=== PATIENT | male | born 1940 | race Caucasian/White ===

== ENCOUNTER → 2017-04-15 | Day surgery (SDC) | payer MEDICARE, BC ==
[~2017-04-15] MED LIST: ACET325T11 PO; ASPI1TAB57 PO; ASPI81TA82 PO; CELE1CAP8 PO; CELE200C PO; CHOL50006 PO; D-50TAB PO; ENOX100P SQ; FOLI800T PO; FURO20TA PO; GLIP10TA6 PO; GLIP2.5T6 PO; KLOR20TA3 PO; LIDOCAINE HCL 1% PF 30 ML VIAL INFIL ONE; LORTA5 PO; MEPERIDINE HCL 25 MG/ML VIAL IV ONE; MEPERIDINE HCL 50 MG/ML VIAL IV ONE; METF500T PO; METH2.5 PO; METH2.5T PO; METO25 PO; METO25TA3 PO; MIDAZOLAM HCL 2 MG/2 ML VIAL IV ONE; POTA20PA PO; PROBCAP4 PO; PROPOFOL 200 MG/20 ML AMP IV ONE; SODIUM CHLORIDE 0.9% 10 ML VIAL ONE; WARF-21 PO; WARF7.5T4 PO; ZOLP10TA3 PO; [UNRECOGNIZED DRUG - CODE] PO; methylPREDNISolone ACETATE 80 MG/ML VIAL ONE
--- NOTE | 2017-04-17 14:19 | M6 ---
cc: Juvenal HUANG DATE: 04/15/2017. DATE OF : 11/22/1939 PROCEDURE PERFORMED: Fluoroscopically-guided L4-5 interlaminar epidural steroid injection. DESCRIPTION OF THE PROCEDURE IN DETAIL: History and physical was completed and signed. Consent was signed. Procedure site was marked. Medications were listed and reconciled. Pain score was recorded. Allergies were noted. Time out was taken. Fluoroscopy time was recorded where applicable. Sedation was administered or directed by Dr. Huang. The patient was given oxygen. The patient was monitored by a registered nurse. Total procedure time was greater than 15 minutes. IV was started, blood pressure cuff, pulse oximeter and EKG were applied. The patient was placed in the prone position on a Alex table and sedated with small amounts of propofol titrated to effect. Vital signs were monitored and remained stable throughout the procedure. The lumbar area was prepped with alcohol and 10% Betadine solution and draped with sterile drapes. Fluoroscopy was used to visualize the L4-5 interlaminar space. The skin was infiltrated with 1% Xylocaine using a 27-gauge needle. Then a 3-1/2-inch 18-gauge Tran needle was advanced using fluoroscopic guidance and the yygz-rz-hbencmuybz technique into the epidural space at L4-5 slightly to the left of the midline. There was negative aspiration for blood or any other type of fluid and the patient was given 10 mL of 0.5% Xylocaine and 80 mg of Depo-Medrol. Following this, the patient was taken to the recovery room with stable vital signs neurologically intact. MD REI Dominguez/VINCE /10:39 AM /2:04 PM
== END | disposition home or self-care (01) ==
LOC: PHSDC 08:56
PROVIDERS: ATTEND Pain Medicine Interventional Pain Medicine
DX: M54.5 Low back pain (principal)
CPT/HCPCS: 62323; 99152; J1040; J2175; J2250

== ENCOUNTER → 2017-07-01 | Day surgery (SDC) | payer MEDICARE, BC ==
[~2017-07-01] MED LIST changes: -ACET325T11 PO; -ASPI81TA82 PO; -CELE200C PO; -CHOL50006 PO; -ENOX100P SQ; -GLIP2.5T6 PO; +LIDOCAINE HCL 1% 30 ML VIAL INFIL ONE; -LIDOCAINE HCL 1% PF 30 ML VIAL INFIL ONE; -LORTA5 PO; -MEPERIDINE HCL 25 MG/ML VIAL IV ONE; -MEPERIDINE HCL 50 MG/ML VIAL IV ONE; -METH2.5 PO; -METO25 PO; -MIDAZOLAM HCL 2 MG/2 ML VIAL IV ONE; -POTA20PA PO; -PROBCAP4 PO; -PROPOFOL 200 MG/20 ML AMP IV ONE; +TRIAMCINOLONE ACETONIDE 40 MG/ML VIAL NERV BLOCK ONE; -WARF7.5T4 PO
--- NOTE | 2017-07-01 08:00 | M6 ---
cc: Juvenal Huang MD DATE: 07/01/2017 PROCEDURE PERFORMED: Fluoroscopically-guided L3-L4 interlaminar epidural steroid injection. DETAILS OF PROCEDURE: History and physical was completed and signed. Consent was signed. Procedure site was marked. Medications were listed and reconciled. Pain score was recorded. Allergies were noted. Time out was taken. Fluoroscopy time was recorded where applicable. Blood pressure cuff pulse oximeter and EKG were applied. The patient was placed in colon left lateral decubitus position. His back was prepped with alcohol and 10% Betadine solution and draped with sterile drapes. Fluoroscopy was used to visualize the L3-L4 interlaminar space. The skin was infiltrated with 1% Xylocaine, using a 27-gauge needle. Then, a 3.5-inch 18-gauge Tran needle was advanced, using fluoroscopic guidance and the loss of resistance technique, into the epidural space at L3-L4, slightly to the left of the midline. There was negative aspiration for blood and any other type of fluid and the patient was given 10 mL of 0.5% Xylocaine and 80 mg of Depo-Medrol. Following the procedure, the patient was taken to the recovery room with stable vital signs and neurologically intact. Juvenal Huang MD [facility]/BRAYDON , 07:51 AM , 07:59 AM
== END | disposition home or self-care (01) ==
LOC: PHSDC 06:22
PROVIDERS: ATTEND Pain Medicine Interventional Pain Medicine
DX: M54.5 Low back pain (principal)
CPT/HCPCS: 62323; J1040; J3301

== ENCOUNTER → 2017-08-20 | Day surgery (SDC) | payer MEDICARE, BC ==
[~2017-08-20] MED LIST changes: +IOHEXOL 180 MG/ML 20 ML VIAL (for RAD DIAG) EPIDURAL ONE; +MEPERIDINE HCL 50 MG/ML VIAL IV ONE; -SODIUM CHLORIDE 0.9% 10 ML VIAL ONE; -methylPREDNISolone ACETATE 80 MG/ML VIAL ONE
--- NOTE | 2017-08-20 08:11 | M6 ---
cc: Juvenal Huang MD DATE: 08/20/2017 PROCEDURE PERFORMED: Fluoroscopically guided L2-3 interlaminar epidural steroid injection. History and physical was completed and signed. Consent was signed. Procedure site was marked. Medications were listed and reconciled. Pain score was recorded. Allergies were noted. Time out was taken. Fluoroscopy time was recorded where applicable. Sedation was administered or directed by Dr. Huang. The patient was given oxygen. The patient was monitored by a registered nurse. Total procedure time was greater than 15 minutes. PROCEDURE NOTE: IV was started. Blood pressure cuff, pulse oximeter and EKG were applied. The patient was placed in the left lateral decubitus position. His back was prepped with alcohol and 10% Betadine solution. He was given 50 mg of Demerol IV. The area was draped with sterile drapes. The skin was infiltrated with 1% Xylocaine using a 27-gauge needle. Then, a 3-1/2 inch, 18-gauge Tran needle was advanced using fluoroscopic guidance and the loss of resistance technique into the epidural space slightly to the left of the midline. There was negative aspiration for blood or any other type of fluid and the patient was given 3 mL of 1% Xylocaine, 3 mL of Omnipaque and 60 mg of Kenalog. Following the procedure, the patient was taken to the recovery room with stable vital signs, neurologically intact. Juvenal Huang MD [facility]/MIRELLA , 07:54 AM , 08:08 AM
--- NOTE | 2017-08-20 08:18 | M6 ---
cc: Juvenal Huang MD DATE: 08/20/2017 PROCEDURE: Epidurogram. Images were saved to the patient's chart. INDICATION/PROCEDURE: Mr. Barr has left lower extremity pain across the thigh down to the knee, but not below the knee. He does have an old MRI done in 2014 showing a disk herniation at L2-L3 with some encroachment on the L2 nerve roots. We have done epidural steroid injections in the past, which gave the patient good relief for many months; however, recently on 07/01/2017 a lumbar epidural steroid injection did not give the patient much relief at all, so he may have a worsening condition or new herniated disk. We are repeating the epidural steroid injection today. We are performing an epidurogram to determine if there is good flow of medication to the L2 nerve roots or if there is some obstruction to flow of medication. In addition, I am giving the patient a prescription for a new MRI to determine if there is any new pathology that might be causing this increased pain, which is not responding to our treatment. A 3.5 inch, 18-gauge Tran needle was placed at the L3-L4 level under fluoroscopy. Omnipaque dye was injected and seen to spread only in a cephalad direction up to the T12-L1 level. None of the dye flowed caudally. IMPRESSION: Possible worsening spinal stenosis with obstruction of flow of the injected medication. PLAN: Await results of new MRI. Juvenal Huang MD [facility] , 07:58 AM , 08:16 AM
== END | disposition home or self-care (01) ==
LOC: PHSDC 06:16
PROVIDERS: ATTEND Pain Medicine Interventional Pain Medicine
DX: M79.662 Pain in left lower leg (principal)
CPT/HCPCS: 64483; J2175; J3301; Q9965

== ENCOUNTER 2017-11-10 06:42 | Inpatient (IN) ==
[~2017-11-10 06:42] MED LIST changes: -ASPI1TAB57 PO; -CELE1CAP8 PO; -D-50TAB PO; -FOLI800T PO; -FURO20TA PO; -GLIP10TA6 PO; +HYDROmorphone PF Inj 2 MG/ML Vial ONE; +Hypromellose 0.3% Opth Gel 10 GM Bottle ONE; -IOHEXOL 180 MG/ML 20 ML VIAL (for RAD DIAG) EPIDURAL ONE; -KLOR20TA3 PO; -LIDOCAINE HCL 1% 30 ML VIAL INFIL ONE; -MEPERIDINE HCL 50 MG/ML VIAL IV ONE; -METF500T PO; -METH2.5T PO; -METO25TA3 PO; +Propofol Inj 500 MG/50 ML Vial ONE; -TRIAMCINOLONE ACETONIDE 40 MG/ML VIAL NERV BLOCK ONE; -WARF-21 PO; -ZOLP10TA3 PO; -[UNRECOGNIZED DRUG - CODE] PO; +fentaNYL Citrate Inj 250 MCG/5 ML Ampul ONE
[2017-11-10] MEDS ORDERED: Metoprolol Tartrate 25 MG Tablet ONE (07:53)
[2017-11-10] MEDS ORDERED: ceFAZolin 2 GM Premix Inj 2 GM/50 ML PIGGYBACK IV.SIG ONE (08:05)
[2017-11-10] MEDS ORDERED: Gelatin Size 100 Topical Foam ONE (08:05)
[2017-11-10] MEDS ORDERED: Bupivacaine/Epinephrine 0.5% Inj 50 ML Vial ONE (08:05)
[2017-11-10] MEDS ORDERED: Thrombin Topical Soln 5,000 UNIT Vial TOPICAL ONE (08:05)
[2017-11-10] MEDS: Chlorhexidine Gluconate 2% 1 Pack (2 Cloths) TOPICAL ONE ×2 (08:15→08:38)
[2017-11-10] MEDS: Metoprolol Tartrate 25 MG Tablet PO SCH ×2 (08:25→22:31)
[2017-11-10] MEDS ORDERED: Lidocaine PF 1% Inj 5 ML Syringe INFILTRATN ONE (08:33)
[2017-11-10] MEDS ORDERED: Glycopyrrolate Inj 1 MG/5 ML Syringe IV.PUSH ONE (08:33)
[2017-11-10] MEDS ORDERED: Phenylephrine/NS 1000 MCG/10ML Syringe IV.PUSH ONE (08:33)
[2017-11-10] MEDS ORDERED: Sodium Chlor 0.9% Inj 500 ML IV.SIG ONE (08:33)
[2017-11-10 08:34] LABS: INR 1.1 Ratio; Prothrombin Time 11.3 sec (9.8-11.6)
[2017-11-10] MEDS ORDERED: Sodium Chlor 0.9% Inj 500 ML IV.SIG SCH (09:00)
[2017-11-10] MEDS ORDERED: Bisacodyl 10 MG Supp RECTAL PRN (09:57)
[2017-11-10] MEDS ORDERED: Acetaminophen 325 MG Tablet PO PRN (09:57)
[2017-11-10] MEDS ORDERED: Sodium Chlor 0.9% Inj 250 ML ONE (09:59)
[2017-11-10] MEDS ORDERED: ceFAZolin 2 GM/NS 100 ML IV IV.SIG SCH ×2 (10:00)
[2017-11-10] MEDS ORDERED: Acetaminophen 500 MG Tablet PO PRN (10:02)
[2017-11-10] MEDS ORDERED: Furosemide 20 MG Tablet PO PRN (10:02)
[2017-11-10] MEDS ORDERED: Bupivacaine Liposomal PF 1.3% Inj 20 ML Vial ONE (10:15)
[2017-11-10] MEDS ORDERED: METHOTREXATE SODIUM 5 MG PO SCH (10:15)
[2017-11-10] MEDS ORDERED: Heparin - SQ 10,000 UNITS/ML Vial ONE (10:18)
[2017-11-10] MEDS ORDERED: Propofol Inj 500 MG/50 ML Vial ONE (12:58)
[2017-11-10] MEDS ORDERED: Morphine Inj 4 MG/ML Vial ONE ×2 (12:59→16:22)
[2017-11-10 13:54] LABS: ABG Base Excess -0.8 mmol/L (-2-2); ABG PCO2 34 mmHg (38-42); ABG PO2 253 mmHG (61-120)
[2017-11-10] MEDS ORDERED: Naloxone Inj 0.4 MG/ML Vial IV.PUSH PRN (15:16)
[2017-11-10] MEDS ORDERED: HYDROmorphone PF Inj 2 MG/ML Vial IV.PUSH ONE (15:16)
--- NOTE | 2017-11-10 15:17 | P.OP ---
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 Microsurgical dissection Anesthesia: MADONNA Surgeon: Alber Lowe MD Fish Cleaner: Joaquin Garcia Pathology: none sent Operation and Findings: INDICATIONS FOR THE SURGICAL PROCEDURE Mr Brar is a 77 year-old male who presented with intractable mechanical back pain and antoni evidence of right L4 and L5 lower extremity radiculopathy. He had severe spondylosis with facet arthropathy and severe degenerative disk disease and instability with secondary spinal stenosis, where he had prior surgery. He failed maximum nonsurgical management including multiple modalities of conservative treatment as well as pain management interventions by an interventional pain specialist. A surgical decompression and arthrodhesis were indicated as a last resort. This was a difficult case due to the patient body habutus and severe degenerative condition that he had. The [id number] details of the procedure, indications, alternatives, risks and potential complications were fully discussed with the patient. The patient fully understood. All the questions were answered. No guarantees were given. The patient voiced requesting the procedure and provided informed consents. The patient was offered the alternative of delaying the procedure and continuing with nonsurgical management. DETAILS OF THE SURGICAL PROCEDURE Prior to the procedure, the surgical incision was marked in the preoperative surgical holding room, and the procedure, risks, and potential complications revisited with the patient. Placement of electrodes for intraoperative neurophysiological monitoring was completed. The patient was taken to the operative room, and following induction of general anesthesia, endotracheal intubation was performed. A Palacios catheter, bilateral PENELOPE hose and sequential compression devices were placed and kept throughout the procedure. The patient was positioned prone, over a Alex table over a Ankur frame. All pressure in the preoperative surgical holding room points were carefully padded with eggcrate and gel mattress. The eyes were tapped shut after ointment was applied by the anesthesiologist to prevent corneal abrasion. A Elham hugger was placed over the exposed lower body to maintain control of the core body temperature. The electrophysiological team placed the needles and electrodes in their proper location and baseline SSEP's and motor evoked potentials were registered prior and following the positioning. The entrance to each pedicles was marked using a C arm. The lumbar region was prepped and draped in the usual sterile fashion. The surgical procedure was performed in several steps as follow: SURGICAL APPROACH Once the patient was positioned, a localizing cross-table lateral x-ray was performed with a C-arm. Two paramedian small incisions were outlined on the skin approximately 3cm from the midline. The skin incisions were made with a # 10 blade. Small bleeders were controlled with the cautery. The dissection was then carried out into deper planes and through the thoracolumbar fascia with a Bovie. The intermuscular septum was identified and the mucles were blunted dissected along the septum. The facets and transverse process of L3, L4, L5 were exposed and the proper anatomical landmarks were identified. A microsurgical self-retaining retractor was placed on the incision, and a localizing lateralizing cross-table x-ray was performed with an instrument underneath a lamina of the lumbar spine. There was a bilateral pars defect with gross instability of the bony structures. INSTRUMENTAL FIXATION At this point in the procedure, placement of bilateral transpedicular screws was necessary for stabilization of the spine. Initially, the entry point for the screw was selected anatomically at the junction of the facet, with the transverse process, and the pars interarticularis at L5 and at the sacrum. This was started with a Giamshetti needle, followed by the use of an pierre wire, and then a tap was used to create the threads for the screws. Finally bilateral transpedicular screws were carefully placed bilaterally at L3, L4, L5 under fluoroscopic visualization. An appropriate purchase was achieved with all screws. The position of each screw was assessed anatomically with an AP, lateral , oblique Xrays. An intraoperative scan view of the spine was then performed using the iso-centric c-arm. Each screw was then assessed electrophysiologically with a nerve stimulator. SURGICAL DECOMPRESSION There was significant mass effect with compression of the neural structures. In order to relieve neural compression, it was necessary to perform a decompressive laminectomy, with decompression of the spinal canal and bilateral lateral recesses. Note that the scope of such decompression was significantly more extensive than the minimal exposure necessary to perform an interbody fusion, as there was extreme facet arthropathy with near complete collapse of the disk spaces and severe stenosis cause by the hyperthrophic joint facets. At this point of the procedure the operative microscope was draped in the usual sterile fashion and brought to the field. The rest of the surgical procedure was performed using microdissection technique with the exception of the closure. Under the operating microscope, a decompressive laminectomy was carried out at L3-4, and L4-5 as follow: The laminae, base of the spinous processes and facets were carefully drilled exposing the ligamentum flavum. The facets were abnormal with severe facet arthropathy, vacuum facets, and mass effect over the neural structures. A broad disk protusion was contributing to compression of the neural structures and bilateral exiting L4 and L5 nerve roots. A near complete facetectomy was necessary resulting in further mechanical instability. The ligamentum flavum appeared hypertrophic, resulting on mass effect on the dorsal surface of the neural structures. The superior free border of the ligamentum flavum was elevated with a ligament dissector and the ligamentum flavum was removed with a 3 and 4 mm Kerrison forceps. The ligament was very adherent to the dural sac and during the dissection, ans extreme care was taken during the dissection. The exiting nerve roots were identified, and a wide foraminotomy was performed with a Kerrison in their trajectory towards the neural foramenat both levels. Epidural veins located laterally to the dural sac were coagulated with the bipolar cautery, and then incised using microscissors. Gentle medial retraction of the dural sac allowed me to expose the disc space for the discectomy. Upon completion of the discectomy, an excellent decompression of the neural structures was achieved. INTERBODY ARTHRODHESIS In order to correct the narrowing of the disk space and maintain distraction of the space, and to achieve a solid interbody fusion, it was necessary the insertion of an interbody device into the disk space. Otherwise, the disk space would collapse, compromising the result of the surgical procedure. At this point of the procedure, the annulus fibrosus of the disk at L3-4 and L4- 5 were carefully coagulated with a bipolar cautery and incised using an 11 bladed knife. Then, a microdiscectomy was carried out in a standard fashion using a combination of straight and up-biting pituitary forceps. A reverse angle curette was applied underneath the posterior longitudinal ligament, and used to push the disk fragments into the disk space, so they can be safely removed with a pituitary forceps. Once the discectomy was completed, it was necessary to decorticate the endplates, in order to eliminate the cartilaginous endplate and to expose healthy bone appropriate to perform the interbody fusion. The endplates at L3-4 and L4-5 were then thoroughly decorticated using increasing size bone carlos eduardo and ring curets, eliminating the cartilaginous fragments from both, the superior and inferior endplates. A disk space distractor was applied to the pedicle screws and gentle distraction was applied. This maneuver was assisted by the use of a disk distractor. Once a thorough preparation of the disk space was achieved, the disk space was irrigated with antibiotic solution, and the interbody fusion was performed by carefully impacting expandable PEEK cages filled with autologous iliac crest bone graft. A solid position of the cage with good purchase was achieved at both levels. The position of the cages were assessed anatomically with a probe and radiologically with the C-arm. POSTEROLATERAL FUSION The posterolateral fusion is a critical component to the procedure, to prevent future fatigue and failure of the instrumental fixation. Initially, the transverse processes of the vertebral bodies, lateral surface of the facets and the lateral gutters of the spine were carefully cleaned, eliminating all soft tissue and muscle attachments. The area was then irrigated with a large amount of antibiotic solution. Subsequently, the transverse processes, lateral surface of the facets, and lateral gutters of the spine were thoroughly decorticated using the TPS drill with a 5mm cutting rolanda, exposing cancellous bone, in preparation for the posterolateral fusion. The incision was again irrigated with antibiotic solution. Then, the posterolateral fusion was then performed by carefully packing the lateral gutters of the spine at L3-4 and L4-5 with autologous bone combined with demineralized bone matrix. COMPLETION OF THE INSTRUMENTATION AND CLOSURE The rods were brought to the field, applied to all the screws, and the screw caps were sequentially applied. Compression was performed between the pedicle screws, and final tightening of the screws was completed using a torque wrench The incision was again thoroughly irrigated with several liters of antibiotic solution, and hemostasis secured with the bipolar cautery. A Valsalva Maneuver performed by the anesthesiologist failed to show any evidence of cerebrospinal fluid leak or bleeding. A 7 mm Alex-Auguste drain was left in the epidural space and externalized through a separate stab incision. The incision was then closed in planes. 0 Vicryl was used in an interrupted fashion to close the thoracolumbar fascia and the superficial fascia. The subcutaneous tissue was then approximated using 3-0 Vicryl in an interrupted fashion. Special care was taken to avoid space. The skin was then closed with 4-0 Vicryl in a running, subcuticular fashion. Dermabond was applied to the skin. Each plane of closure was irrigated with antibiotic solution. At the end of the procedure the sponge, needle and instrument counts were all correct. Estimated blood loss was 550 cc or less. he received autologous blood via the cell saver. No blood transfusion was given. The entire procedure was performed using continuous electrophysiological monitoring of the somatosensorial evoked potentials and EMG. The patient received prophylactic antibiotics. The patient was then extubated and transferred to the recovery room in stable condition.
[2017-11-10 15:24] LABS: ABG Base Excess -1.8 mmol/L (-2-2); ABG PCO2 47 mmHg (38-42); ABG PO2 254 mmHG (61-120)
[2017-11-10] MEDS ORDERED: fentaNYL Citrate Inj 100 MCG/2 ML Ampul ONE (16:22)
[2017-11-10] MEDS: HYDROmorphone PCA Inj 6 MG/30 ML PCA.VIAL PCA PRN (16:30)
--- NOTE | 2017-11-10 16:42 | XR ---
EXAM DATE: 11/10/2017 4:31 PM EDT AGE/SEX: 77 years / Male INDICATIONS: Lumbar fusion, L3-4 and 4-5. CLINICAL DATA: This is the patient's initial encounter. Patient reports that signs and symptoms have been present for 1 day and indicates a pain score of Nonresponsive. MEDICAL/SURGICAL HISTORY: . Arthritis. Diabetes. Spinal stenosis. A-fib. Hypertension. . COMPARISON: No prior exams available for comparison. FINDINGS: Transpedicular fixation from L3 to S1 in anatomic alignment. CONCLUSION: Anatomic alignment. Electronically signed by: Hermilo Dawson MD 11/10/2017 4:40 PM EDT
--- NOTE | 2017-11-10 18:48 | P.HPFP ---
History of Present Illness Service: primary care Primary Care Physician: Percy Antoine DO Chief Complaint: chronic worsening backpain - Diagnosis (1) Lumbar back pain (2) Spinal stenosis (3) Diabetes (4) Hypertension Inpatient Certification: I certify that the inpatient services were ordered in accordance with Medicare regulations governing the order. This includes certification that hospital inpatient services are reasonable and necessary and in the case of services not specified as inpatient-only under 42 CFR 419.22(n), that they are appropriately provided as inpatient services in accordance to with the 2-midnight benchmark under 43 CFR 412.3(e) Estimated Total Length of Stay (Days): 5 Plans for Post Hospital Care: Not yet determined (may require hospital rehab nielsen) Review of Systems Constitutional: Reports weakness Musculoskeletal: Reports abnormal walking, Reports back pain, Reports joint pain PMFSH - History History Provided By: Patient - Medical History Medical History: Medical History (Last Reviewed 11/10/17 @ 07:36 by Lainey Pascual) Arthritis Atrial fibrillation Back pain Diabetes Hypertension Joint pain Neck pain Psoriasis Sleep apnea Spinal stenosis Spondylolisthesis - Surgical History Surgical History: Surgical History (Last Reviewed 11/10/17 @ 07:24 by Lainey Pascual) History of cataract extraction with lens replacement History of hammer toe correction History of repair of left rotator cuff History of sinus surgery - Tobacco History Second Hand Smoke Exposure: No Smoking Status: Former smoker - Alcohol History How Often Do You Have a Drink Containing Alcohol: Never - Substance Use History Substance History: No History of Abuse - Travel History Recent Travel in the [place] Within the Last 8 Weeks: No Recent Travel Out of the Country Within the Last 8 Weeks: No Medications and Allergies Active Medications: Active Medications Acetaminophen (Tylenol) 650 mg PO Q4H PRN PRN Reason: TEMPERATURE > 101.5 F Acetaminophen/Codeine Phosphate (Tylenol W/Cod #3) 1 tab PO Q6H PRN PRN Reason: PAIN SCALE 1-10 Al Hydroxide/Mg Hydroxide (Milk Of Magnesia Liq) 30 ml PO Q12H PRN PRN Reason: Mild Constipation Bisacodyl (Dulcolax Supp) 10 mg RECTAL DAILY PRN PRN Reason: SEVERE CONSITIPATION Fluticasone Propionate (Flonase Nasal [place]) 1 spray EACH NARE DAILY [facility] Folic Acid (Folic Acid) 1 mg PO DAILY [facility] Furosemide (Lasix) 20 mg PO DAILY PRN PRN Reason: SEE LABEL COMMENTS Glipizide (Glucotrol) 10 mg PO BID [facility] Lactated Ringer's (Lr 1000 Ml Inj) 1,000 mls @ 30 mls/hr IV.SIG .Q24H [facility] Stop: 11/13/17 08:14 Last Admin: 11/10/17 16:30 Dose: 30 mls/hr Sodium Chloride (Ns Inj) 500 mls @ 30 mls/hr IV.SIG .Q10H [facility] Last Admin: 11/10/17 08:29 Dose: Not Given Cefazolin Sodium 2,000 mg/ (Sodium Chloride) 100 mls @ 200 mls/hr IV.SIG FOAM CUTTING SUPERVISOR [facility] Stop: 11/13/17 09:59 Cefazolin Sodium 2,000 mg/ (Sodium Chloride) 120 mls @ 240 mls/hr IV.SIG Q8H [facility] Stop: 11/11/17 12:29 Hydromorphone/Sodium Chloride (Dilaudid Cleaning Supervisor Inj) 6 mg in 30 mls @ 0 mls/hr [employer] UNSCH PRN PRN Reason: per SALES REPRESENTATIVE [employer]URANCE parameters Last Admin: 11/10/17 16:30 Dose: 0 mls/hr Lactulose (Lactulose Liq) 30 ml PO DAILY PRN PRN Reason: SEVERE CONSITIPATION Metformin HCl (Glucophage) 500 mg PO BID [facility] Methocarbamol (Robaxin) 750 mg PO HS [facility] Methotrexate (Rheumatrex) 10 mg PO Q7D [facility] Metoprolol Tartrate (Lopressor) 25 mg PO FOAM CUTTING SUPERVISOR [facility] Stop: 11/13/17 08:12 Last Admin: 11/10/17 08:25 Dose: Not Given Metoprolol Tartrate (Lopressor) 12.5 mg PO BID [facility] Miscellaneous Information (Misc Nursing Information) 1 each OTHER UNSCH PRN PRN Reason: SEE LABEL COMMENTS Stop: 11/11/17 17:04 Naloxone HCl (Narcan Inj) 0.4 mg IV.PUSH PRN PRN PRN Reason: SEE LABEL COMMENTS Non-Formulary Medication (Methotrexate Sodium [Methotrexate Sodium]) 5 mg PO QWEEK [facility] Pantoprazole Sodium (Protonix) 40 mg PO DAILY [facility] Potassium Chloride (K-Dur) 20 meq PO DAILY PRN PRN Reason: Electrolyte Replenishment Senna/Docusate Sodium (Lizbeth-Colace) 1 tab PO BID [facility] Sennosides (Senokot) 17.2 mg PO Q12H PRN PRN Reason: Moderate Constipation Vitamin D (Vitamin D3) 5,000 unit PO DAILY [facility] Zolpidem Tartrate (Ambien) 10 mg PO [facility] Allergies Allergy/AdvReac Type Severity Reaction Status Date / Time penicillin G Allergy Severe Rash Verified 11/10/17 07:24 Home Medications Medication Instructions Recorded Confirmed Type acetaminophen [Acetaminophen Extra 500 mg PO Q4H PRN 11/04/17 11/04/17 History Strength] acetaminophen-codeine 1 tab PO Q6H PRN 11/04/17 11/10/17 History aspirin [Aspirin Low Dose] 81 mg PO DAILY 11/04/17 11/04/17 History celecoxib [Celebrex] 200 mg PO BID 11/04/17 11/10/17 History cholecalciferol (vitamin D3) 5,000 unit PO DAILY 11/04/17 11/10/17 History [Vitamin D3] enoxaparin [Lovenox] 150 mg SUB-Q DAILY 11/04/17 11/10/17 History fluticasone [Flonase Allergy 1 spray INTRANASAL DAILY 11/04/17 11/04/17 History Relief] folic acid 0.8 mg PO DAILY 11/04/17 11/04/17 History furosemide 20 mg PO DAILY PRN 11/04/17 11/10/17 History glipizide 10 mg PO BID 11/04/17 11/10/17 History magnesium hydroxide [Milk of 15 ml PO DAILY PRN 11/04/17 11/04/17 History Magnesia] metformin 500 mg PO BID 11/04/17 11/10/17 History methocarbamol 750 mg PO HS 11/04/17 11/10/17 History methotrexate sodium 5 mg PO QWEEK 11/04/17 11/10/17 History methotrexate sodium 10 mg PO WEEKLY 11/04/17 11/10/17 History metoprolol tartrate 12.5 mg PO BID 11/04/17 11/10/17 History potassium chloride [Klor-Con M20] 20 meq PO DAILY PRN 11/04/17 11/10/17 History warfarin [Coumadin] 6 mg PO DAILY 11/04/17 11/04/17 History zolpidem 10 ophthalmic insert PO HS 11/04/17 11/10/17 History Exam Vital signs: Vital Signs 11/10/17 07:50 11/10/17 16:10 11/10/17 16:30 Temperature 97.6 F 98.6 F Pulse Rate 91 H 102 H 105 H Respiratory Rate 18 18 13 Blood Pressure 146/81 H 115/61 118/68 Pulse Oximetry 96 98 98 11/10/17 16:45 11/10/17 17:00 11/10/17 17:15 Temperature Pulse Rate 110 H 106 H 107 H Respiratory Rate 12 11 L 12 Blood Pressure 127/73 122/65 124/68 Pulse Oximetry 98 98 98 11/10/17 17:30 Temperature Pulse Rate 102 H Respiratory Rate 12 Blood Pressure 124/68 Pulse Oximetry 98 Intake & Output 11/09/17 11/10/17 11/10/17 18:59 06:59 18:59 Intake Total 3677 / 3677 Output Total 1440 / 1440 Balance 2237 / 2237 Weight 129.2 kg Intake: IV 1000 / 1000 LR 1000 mL Inj 1,000 ML @ 30 1000 / 1000 mls/hr IV.SIG .Q24H [facility] Rx#: [id number] Anesthesia Amount 2200 / 2200 Cell Saver Amount 477 / 477 Output: Estimated Blood Loss 600 / 600 Urine Amount (Catheter) 725 / 725 Indwelling Urethral Catheter 725 / 725 Wound Drainage 115 / 115 # 1 Lower Medial Back 115 / 115 Other: Weight On Admission 129.2 kg Results - Labs Abnormal lab results 11/10/17 11/10/17 11/10/17 Range/Units 13:35 15:07 17:04 ABG pH 7.44 H 7.32 L (7.380-7.420) ABG pCO2 34 L 47 H (38-42) mmHg ABG pO2 253 H 254 H (61-120) mmHG Hemoglobin 11.6 L (12.0-16.0) G/DL POC Glucose 185 H (68-110) mg/dl - Imaging Impressions Lumbar Spine X-Ray 11/10/17 00:00 CONCLUSION: Anatomic alignment. Caprini VTE Risk Assessment Caprini VTE Risk Assessment: Moderate/High Risk (score >= 2) Caprini Risk Assessment Model: Point Value = 1 Point Value = 2 Point Value = 3 Point Value = 5 Age 41-60 Minor surgery BMI > 25 kg/m2 Swollen legs Varicose veins or History of unexplained or recurrent spontaneous Oral contraceptives or hormone replacement Sepsis (< 1 month) Serious lung disease, including pneumonia (< 1 month) Abnormal pulmonary function Acute myocardial infarction Congestive heart failure (< 1 month) History of inflammatory bowel disease Medical patient at bed rest Age 61-74 Arthroscopic surgery Major open surgery (> 45 min) Laparoscopic surgery (> 45 min) Malignancy Confined to bed (> 72 hours) Immobilizing plaster cast Central venous access Age >= 75 History of VTE Family history of VTE Factor V Leiden Prothrombin [id number] Lupus anticoagulant Anticardiolipin antibodies Elevated serum homocysteine Heparin-induced thrombocytopenia Other congenital or acquired thrombophilia Stroke (< 1 month) Elective arthroplasty Hip, pelvis, or leg fracture Acute spinal cord injury (< 1 month) Prophylaxis Regimen: Total Risk Factor Score Risk Level Prophylaxis Regimen 0-1 Low Early ambulation 2 Moderate Order ONE of the following: *Sequential Compression Device (SCD) *Heparin 5000 units SQ BID 3-4 Higher Order ONE of the following medications: *Heparin 5000 units SQ TID *Enoxaparin/Lovenox 40 mg SQ daily (WT < 150 kg, CrCl > 30 mL/min) *Enoxaparin/Lovenox 30 mg SQ daily (WT < 150 kg, CrCl > 10-29 mL/min) *Enoxaparin/Lovenox 30 mg SQ BID (WT < 150 kg, CrCl > 30 mL/min) AND/OR *Sequential Compression Device (SCD) 5 or more Highest Order ONE of the following medications: *Heparin 5000 units SQ TID (Preferred with Epidurals) *Enoxaparin/Lovenox 40 mg SQ daily (WT < 150 kg, CrCl > 30 mL/min) *Enoxaparin/Lovenox 30 mg SQ daily (WT < 150 kg, CrCl > 10-29 mL/min) *Enoxaparin/Lovenox 30 mg SQ BID (WT < 150 kg, CrCl > 30 mL/min) AND *Sequential Compression Device (SCD) Assessment and Plan - Assessment (1) Lumbar back pain Code(s): M54.5 - Low back pain Status: Acute (2) Spinal stenosis Code(s): M48.00 - Spinal stenosis, site unspecified Status: Acute Plan: s/p lumbar surgery (3) Diabetes Code(s): E11.9 - Type 2 diabetes mellitus without complications Status: Acute Plan: accuchecks with coverage (4) Hypertension Code(s): I10 - Essential (primary) hypertension Status: Acute Plan: moniter bp and continue metoprolol - Assessment and Plan Discussed Condition With: nursing and patient /family H&P: Quality - VTE Deep Vein Thrombosis/Pulmonary Embolism Present on Admission: No (3) Diabetes Qualifiers: Diabetes mellitus type: type 2
[2017-11-10 20:30] LABS: Baso % (Auto) 0.1 % (0.0-2.0); Hematocrit 34.8 % (39.0-51.0); Hemoglobin 11.7 gm/dL (13.0-17.0); Lymph # (Auto) 0.7 th/mm3 (1.0-4.8); Lymph % (Auto) 5.6 % (9.0-44.0); Mean Corpuscular HGB Conc 33.5 % (32.0-36.0); Mean Corpuscular Hemoglobin 31.5 pg (27.0-34.0); Mean Platelet Volume 8.8 fL (7.0-11.0); Mono # (Auto) 0.6 th/mm3 (0.0-0.9); Mono % (Auto) 5.5 % (0.0-8.0); Neut # (Auto) 10.3 th/mm3 (1.8-7.7); Neut % (Auto) 88.8 % (16.0-70.0); Platelet Count 154 th/mm3 (150-450); Red Blood Count 3.71 mil/mm3 (4.50-5.90); Red Cell Distribution Width 15.9 % (11.6-17.2); White Blood Count 11.6 th/mm3 (4.0-11.0)
[2017-11-10 20:58] LABS: Anion Gap 8 meq/L (5-15); Blood Urea Nitrogen 14 mg/dL (7-18); Calcium 7.9 mg/dL (8.5-10.1); Carbon Dioxide 26.3 meq/L (21.0-32.0); Chloride 106 meq/L (98-107); Glomerular Filtration Rate Greater Than 89 mL/min (>89); Glucose,Random 176 mg/dL (74-106); Potassium 4.3 meq/L (3.5-5.1); Sodium 140 meq/L (136-145)
[2017-11-10] MEDS: Senna/Docusate Sodium 8.6/50 MG Tablet PO SCH (22:31)
[2017-11-10] MEDS: glipiZIDE 10 MG Tablet PO SCH (22:31)
[2017-11-10] MEDS: ceFAZolin Inj 2,000 MG in Sodium Chlor 0.9% Inj 100 ML IV.SIG SCH (22:32)
[2017-11-11] MEDS: Methocarbamol 500 MG Tablet PO SCH ×2 (00:57→20:23)
[2017-11-11] MEDS: ceFAZolin Inj 2,000 MG in Sodium Chlor 0.9% Inj 100 ML IV.SIG SCH ×2 (04:18→12:38)
[2017-11-11] MEDS: HYDROmorphone PCA Inj 6 MG/30 ML PCA.VIAL PCA PRN ×2 (04:19→21:58)
[2017-11-11 06:02] LABS: Anion Gap 7 meq/L (5-15); Carbon Dioxide 28.6 meq/L (21.0-32.0); Chloride 106 meq/L (98-107); Glomerular Filtration Rate Greater Than 89 mL/min (>89); Glucose,Random 145 mg/dL (74-106); Potassium 4.4 meq/L (3.5-5.1); Sodium 142 meq/L (136-145)
[2017-11-11 06:13] LABS: Blood Urea Nitrogen 13 mg/dL (7-18); Phosphorus 2.7 mg/dL (2.5-4.9)
[2017-11-11] MEDS: Senna/Docusate Sodium 8.6/50 MG Tablet PO SCH ×2 (08:38→20:22)
[2017-11-11] MEDS: glipiZIDE 10 MG Tablet PO SCH ×2 (08:38→20:22)
[2017-11-11] MEDS: Folic Acid 1 MG Tablet PO SCH (08:38)
[2017-11-11] MEDS: Metoprolol Tartrate 25 MG Tablet PO SCH ×4 (08:38→20:22)
--- NOTE | 2017-11-11 08:59 | P.PNFP ---
Subjective Interval history: Denies pain this am, with use of CHURCH HISTORY PROFESSOR No SOB. NO chest pain, No NV Spouse at bedside Results - Labs Result diagrams: 11/10/17 19:56 11/11/17 04:17 Abnormal lab results 11/10/17 11/10/17 11/10/17 Range/Units 13:35 15:07 17:04 WBC (4.0-11.0) th/mm3 RBC (4.50-5.90) mil/mm3 Hgb (13.0-17.0) gm/dL Hct (39.0-51.0) % Neut % (Auto) (16.0-70.0) % Lymph % (Auto) (9.0-44.0) % Neut # (Auto) (1.8-7.7) th/mm3 Lymph # (Auto) (1.0-4.8) th/mm3 ABG pH 7.44 H 7.32 L (7.380-7.420) ABG pCO2 34 L 47 H (38-42) mmHg ABG pO2 253 H 254 H (61-120) mmHG Hemoglobin 11.6 L (12.0-16.0) G/DL Creatinine (0.60-1.30) mg/dL POC Glucose 185 H (68-110) mg/dl Random Glucose (74-106) mg/dL Calcium (8.5-10.1) mg/dL 11/10/17 11/10/17 11/11/17 Range/Units 19:56 19:56 00:35 WBC 11.6 H (4.0-11.0) th/mm3 RBC 3.71 L (4.50-5.90) mil/mm3 Hgb 11.7 L (13.0-17.0) gm/dL Hct 34.8 L (39.0-51.0) % Neut % (Auto) 88.8 H (16.0-70.0) % Lymph % (Auto) 5.6 L (9.0-44.0) % Neut # (Auto) 10.3 H (1.8-7.7) th/mm3 Lymph # (Auto) 0.7 L (1.0-4.8) th/mm3 ABG pH (7.380-7.420) ABG pCO2 (38-42) mmHg ABG pO2 (61-120) mmHG Hemoglobin (12.0-16.0) G/DL Creatinine (0.60-1.30) mg/dL POC Glucose 155 H (68-110) mg/dl Random Glucose 176 H (74-106) mg/dL Calcium 7.9 L (8.5-10.1) mg/dL 11/11/17 11/11/17 Range/Units 04:17 06:21 WBC (4.0-11.0) th/mm3 RBC (4.50-5.90) mil/mm3 Hgb (13.0-17.0) gm/dL Hct (39.0-51.0) % Neut % (Auto) (16.0-70.0) % Lymph % (Auto) (9.0-44.0) % Neut # (Auto) (1.8-7.7) th/mm3 Lymph # (Auto) (1.0-4.8) th/mm3 ABG pH (7.380-7.420) ABG pCO2 (38-42) mmHg ABG pO2 (61-120) mmHG Hemoglobin (12.0-16.0) G/DL Creatinine 0.58 L (0.60-1.30) mg/dL POC Glucose 125 H (68-110) mg/dl Random Glucose 145 H (74-106) mg/dL Calcium 8.0 L (8.5-10.1) mg/dL Short CBC 11/10/17 Range/Units 19:56 WBC 11.6 H (4.0-11.0) th/mm3 Hgb 11.7 L (13.0-17.0) gm/dL Hct 34.8 L (39.0-51.0) % Plt Count 154 (150-450) th/mm3 BMP 11/10/17 11/11/17 19:56 04:17 Sodium 140 142 Potassium 4.3 4.4 Chloride 106 106 Carbon Dioxide 26.3 28.6 BUN 14 13 Creatinine 0.67 0.58 L Calcium 7.9 L 8.0 L - Imaging Impressions Lumbar Spine X-Ray 11/10/17 00:00 CONCLUSION: Anatomic alignment. Physical Exam Vital signs: Vital Signs 11/10/17 16:10 11/10/17 16:30 11/10/17 16:45 Temperature 98.6 F Pulse Rate 102 H 105 H 110 H Respiratory Rate 18 13 12 Blood Pressure 115/61 118/68 127/73 Pulse Oximetry 98 98 98 11/10/17 17:00 11/10/17 17:15 11/10/17 17:30 Temperature Pulse Rate 106 H 107 H 102 H Respiratory Rate 11 L 12 12 Blood Pressure 122/65 124/68 124/68 Pulse Oximetry 98 98 98 11/10/17 18:35 11/10/17 20:00 11/11/17 00:00 Temperature 98 F 97.7 F 98.1 F Pulse Rate 99 H 99 H 96 H Respiratory Rate 16 18 18 Blood Pressure 120/71 114/73 117/64 Pulse Oximetry 98 100 100 11/11/17 01:00 11/11/17 04:00 11/11/17 04:49 Temperature 97.3 F L Pulse Rate 91 H Respiratory Rate 17 18 17 Blood Pressure 114/64 Pulse Oximetry 100 11/11/17 21:00 Temperature Pulse Rate Respiratory Rate 17 Blood Pressure Pulse Oximetry Intake & Output 11/10/17 11/11/17 11/11/17 18:59 06:59 18:59 Intake Total 3677 / 3677 260 / 260 1000 / 1000 Output Total 1440 / 1440 1700 / 1700 Balance 2237 / 2237 -1440 / -1440 1000 / 1000 Weight 129.2 kg 129.2 kg Intake: IV 1000 / 1000 240 / 240 1000 / 1000 LR 1000 mL Inj 1,000 ML @ 30 1000 / 1000 1000 / 1000 mls/hr IV.SIG .Q24H [facility] Rx#: [id number] Ancef Inj 2,000 MG In NS Inj 240 / 240 100 ML @ 240 mls/hr IV.SIG Q8H [facility] Rx#:[id number] Oral 20 / 20 Anesthesia Amount 2200 / 2200 Cell Saver Amount 477 / 477 Output: Urine 1700 / 1700 Estimated Blood Loss 600 / 600 Urine Amount (Catheter) 725 / 725 Indwelling Urethral Catheter 725 / 725 Wound Drainage 115 / 115 # 1 Lower Medial Back 115 / 115 Other: Weight On Admission 129.2 kg - Constitutional no acute distress - Routine HEENT Exam Eye: Present: PERRL ENT: Present: mucous membranes moist - Routine Neck Exam Present: supple - Routine Respiratory Exam Present: CTA bilaterally - Routine Cardiovascular Exam Present: S1, S2 - Routine Abdominal Exam Present: soft, normoactive bowel sounds - Routine Extremities Exam Present: pulses intact - Routine Skin Exam Present: dry, warm - Routine Psychiatric Exam Present: normal affect, cooperative - Urinary Catheter Management Indwelling Urethral Catheter Cath placed during this visit: yes Reason for continuing: Other continuation reason Insertion date: 11/10/17 Insertion time: 09:00 Assessment and Plan - Assessment (1) Lumbar back pain Code(s): M54.5 - Low back pain Status: Acute (2) Spinal stenosis Code(s): M48.00 - Spinal stenosis, site unspecified Status: Acute Plan: s/p lumbar surgery (3) Diabetes Code(s): E11.9 - Type 2 diabetes mellitus without complications Status: Acute Plan: accuchecks with coverage (4) Hypertension Code(s): I10 - Essential (primary) hypertension Status: Acute Plan: moniter bp and continue metoprolol - Assessment and Plan 11/11/17- Seen this am, uneventful night reported. Pain controlled with Coat Check Attendant, Norm drain in place, SP L3-L4, L4-5 laminectomy. Denies any nausea, tolerating diet. PT to eval (3) Diabetes Qualifiers: Diabetes mellitus type: type 2
--- NOTE | 2017-11-11 10:44 | P.PNNS ---
Subjective Interval history: Pt awake and alert. Complains of incisional pain controlled with Diludid BLISTER PACKING MACHINE TENDER. No radiculopathy or paresthesias in LEs. Physical Exam Vital signs: Vital Signs 11/10/17 16:10 11/10/17 16:30 11/10/17 16:45 Temperature 98.6 F Pulse Rate 102 H 105 H 110 H Respiratory Rate 18 13 12 Blood Pressure 115/61 118/68 127/73 Pulse Oximetry 98 98 98 11/10/17 17:00 11/10/17 17:15 11/10/17 17:30 Temperature Pulse Rate 106 H 107 H 102 H Respiratory Rate 11 L 12 12 Blood Pressure 122/65 124/68 124/68 Pulse Oximetry 98 98 98 11/10/17 18:35 11/10/17 20:00 11/11/17 00:00 Temperature 98 F 97.7 F 98.1 F Pulse Rate 99 H 99 H 96 H Respiratory Rate 16 18 18 Blood Pressure 120/71 114/73 117/64 Pulse Oximetry 98 100 100 11/11/17 01:00 11/11/17 04:00 11/11/17 04:49 Temperature 97.3 F L Pulse Rate 91 H Respiratory Rate 17 18 17 Blood Pressure 114/64 Pulse Oximetry 100 11/11/17 08:00 11/11/17 21:00 Temperature 97.4 F L Pulse Rate 90 Respiratory Rate 18 17 Blood Pressure 116/62 Pulse Oximetry 99 Intake & Output 11/10/17 11/11/17 11/11/17 18:59 06:59 18:59 Intake Total 3677 / 3677 260 / 260 1000 / 1000 Output Total 1440 / 1440 1700 / 1700 Balance 2237 / 2237 -1440 / -1440 1000 / 1000 Weight 129.2 kg 129.2 kg Intake: IV 1000 / 1000 240 / 240 1000 / 1000 LR 1000 mL Inj 1,000 ML @ 30 1000 / 1000 1000 / 1000 mls/hr IV.SIG .Q24H [facility] Rx#: [id number] Ancef Inj 2,000 MG In NS Inj 240 / 240 100 ML @ 240 mls/hr IV.SIG Q8H [facility] Rx#:[id number] Oral 20 / 20 Anesthesia Amount 2200 / 2200 Cell Saver Amount 477 / 477 Output: Urine 1700 / 1700 Estimated Blood Loss 600 / 600 Urine Amount (Catheter) 725 / 725 Indwelling Urethral Catheter 725 / 725 Wound Drainage 115 / 115 # 1 Lower Medial Back 115 / 115 Other: Weight On Admission 129.2 kg - Constitutional no acute distress - Routine HEENT Exam Head: Present: normocephalic, atraumatic Eye: Present: PERRL. Absent: scleral injection ENT: Present: oropharynx clear - Routine Neck Exam Present: trachea midline - Routine Respiratory Exam Present: CTA bilaterally. Absent: respiratory distress, rhonchi, wheezes - Routine Cardiovascular Exam Present: RRR, S1, S2. Absent: murmur - Routine Abdominal Exam Present: soft, normoactive bowel sounds. Absent: distended - Routine Skin Exam Absent: cyanosis, erythema Comments: KINZA drain in place with bloody output. - Routine Neurological Exam Present: alert, oriented X3, motor deficit (Right EHL 4-/5 left EHL 4/5, otherwise 5/5 in LEs.), moving all extremities, normal speech. Absent: altered mental status - Routine Psychiatric Exam Present: normal affect, cooperative. Absent: anxious, agitated - Urinary Catheter Management Indwelling Urethral Catheter Cath placed during this visit: yes Reason for continuing: Other continuation reason Insertion date: 11/10/17 Insertion time: 09:00 Assessment and Plan - Assessment (1) Lumbar back pain Code(s): M54.5 - Low back pain Status: Acute (2) Spinal stenosis Code(s): M48.00 - Spinal stenosis, site unspecified Status: Acute (3) Diabetes Code(s): E11.9 - Type 2 diabetes mellitus without complications Status: Acute Qualifiers: Diabetes mellitus type: type 2 (4) Hypertension Code(s): I10 - Essential (primary) hypertension Status: Acute - Plan A: 77 y/o M s/p L3/L4 and L4/L5 TLIF with cage and pedicle screw fixation. P: Pain controlled with Dilaudid BLISTER PACKING MACHINE TENDER continue. Pt requesting to get oob this morning to have bm will have [employer] bring LSO brace. Continue with KINZA drain Continue with current care.
[2017-11-11] MEDS: Enoxaparin Inj 40 MG/0.4 ML Syringe SQ SCH (21:59)
[2017-11-12 06:01] LABS: Hematocrit 33.1 % (39.0-51.0); Hemoglobin 10.9 gm/dL (13.0-17.0); Mean Corpuscular HGB Conc 32.9 % (32.0-36.0); Mean Corpuscular Volume 94.3 fL (80.0-100.0); Mean Platelet Volume 9.1 fL (7.0-11.0); Platelet Count 152 th/mm3 (150-450); Red Blood Count 3.51 mil/mm3 (4.50-5.90); Red Cell Distribution Width 15.9 % (11.6-17.2); White Blood Count 12.2 th/mm3 (4.0-11.0)
[2017-11-12 06:23] LABS: Anion Gap 8 meq/L (5-15); Blood Urea Nitrogen 15 mg/dL (7-18); Calcium 7.9 mg/dL (8.5-10.1); Carbon Dioxide 29.1 meq/L (21.0-32.0); Chloride 103 meq/L (98-107); Glomerular Filtration Rate Greater Than 89 mL/min (>89); Glucose,Random 114 mg/dL (74-106); Potassium 3.9 meq/L (3.5-5.1); Sodium 140 meq/L (136-145)
[2017-11-12] MEDS: glipiZIDE 10 MG Tablet PO SCH ×2 (09:33→20:49)
[2017-11-12] MEDS: Senna/Docusate Sodium 8.6/50 MG Tablet PO SCH ×2 (09:33→20:49)
[2017-11-12] MEDS: Folic Acid 1 MG Tablet PO SCH (09:33)
[2017-11-12] MEDS: Metoprolol Tartrate 25 MG Tablet PO SCH ×2 (09:36→20:48)
--- NOTE | 2017-11-12 10:00 | P.PNFP ---
Subjective Interval history: Slept well Pain controlled w/ Finishing Frame Runner Denies CP, Sob, Spouse at Bedside Results - Labs Result diagrams: 11/12/17 04:21 11/12/17 04:21 Abnormal lab results 11/11/17 11/11/17 11/11/17 Range/Units 12:40 17:49 23:40 WBC (4.0-11.0) th/mm3 RBC (4.50-5.90) mil/mm3 Hgb (13.0-17.0) gm/dL Hct (39.0-51.0) % Creatinine (0.60-1.30) mg/dL POC Glucose 141 H 162 H 142 H (68-110) mg/dl Random Glucose (74-106) mg/dL Calcium (8.5-10.1) mg/dL 11/12/17 11/12/17 Range/Units 04:21 04:21 WBC 12.2 H (4.0-11.0) th/mm3 RBC 3.51 L (4.50-5.90) mil/mm3 Hgb 10.9 L (13.0-17.0) gm/dL Hct 33.1 L (39.0-51.0) % Creatinine 0.54 L (0.60-1.30) mg/dL POC Glucose (68-110) mg/dl Random Glucose 114 H (74-106) mg/dL Calcium 7.9 L (8.5-10.1) mg/dL Short CBC 11/12/17 Range/Units 04:21 WBC 12.2 H (4.0-11.0) th/mm3 Hgb 10.9 L (13.0-17.0) gm/dL Hct 33.1 L (39.0-51.0) % Plt Count 152 (150-450) th/mm3 BMP 11/12/17 04:21 Sodium 140 Potassium 3.9 Chloride 103 Carbon Dioxide 29.1 BUN 15 Creatinine 0.54 L Calcium 7.9 L - Imaging Lumbar Spine X-Ray 11/10/17 00:00 CONCLUSION: Anatomic alignment. Physical Exam Vital signs: Vital Signs 11/11/17 12:00 11/11/17 16:00 11/11/17 20:00 Temperature 98.5 F 97.7 F 98.0 F Pulse Rate 87 101 H 93 H Respiratory Rate 18 18 19 Blood Pressure 93/56 L 122/60 140/74 Pulse Oximetry 99 100 100 11/12/17 00:00 11/12/17 04:00 11/12/17 08:00 Temperature 97.6 F 97.7 F 97.9 F Pulse Rate 107 H 105 H 98 H Respiratory Rate 18 18 18 Blood Pressure 106/65 113/65 98/55 L Pulse Oximetry 96 96 94 L Intake & Output 11/11/17 11/12/17 11/12/17 18:59 06:59 18:59 Intake Total 1770 / 1770 1000 / 1000 Output Total 1030 / 1030 1305 / 1305 Balance 740 / 740 -1305 / -1305 1000 / 1000 Weight 129 kg Intake: IV 1120 / 1120 1000 / 1000 LR 1000 mL Inj 1,000 ML @ 30 1000 / 1000 1000 / 1000 mls/hr IV.SIG .Q24H [facility] Rx#: [id number] Ancef Inj 2,000 MG In NS Inj 120 / 120 100 ML @ 240 mls/hr IV.SIG Q8H [facility] Rx#:[id number] Oral 650 / 650 Output: Urine 950 / 950 750 / 750 Urine Amount (Catheter) 450 / 450 Indwelling Urethral Catheter 450 / 450 Wound Drainage 80 / 80 105 / 105 # 1 Lower Medial Back 80 / 80 105 / 105 - Constitutional no acute distress - Routine HEENT Exam Eye: Present: PERRL ENT: Present: mucous membranes moist - Routine Neck Exam Present: supple - Routine Respiratory Exam Present: diminished air movement - Routine Cardiovascular Exam Present: S1, S2 - Routine Abdominal Exam Present: soft, normoactive bowel sounds - Routine Extremities Exam Present: edema - Routine Skin Exam Present: dry, warm - Routine Neurological Exam Present: alert, oriented X3 - Routine Psychiatric Exam Present: cooperative - Urinary Catheter Management Indwelling Urethral Catheter Cath placed during this visit: yes Reason for continuing: Other continuation reason Insertion date: 11/10/17 Insertion time: 09:00 Assessment and Plan - Assessment (1) Lumbar back pain Code(s): M54.5 - Low back pain Status: Acute (2) Spinal stenosis Code(s): M48.00 - Spinal stenosis, site unspecified Status: Acute Plan: s/p lumbar surgery (3) Diabetes Code(s): E11.9 - Type 2 diabetes mellitus without complications Status: Acute Plan: accuchecks with coverage (4) Hypertension Code(s): I10 - Essential (primary) hypertension Status: Acute Plan: monitor bp and continue metoprolol - Assessment and Plan 11/11/17- Seen this am, uneventful night reported. Pain controlled with Finishing Frame Runner, Norm drain in place, SP L3-L4, L4-5 laminectomy. Denies any nausea, tolerating diet. PT to eval 11/12/17 Pain controlled Vss afebrile. Spouse concerned about restarting warfarin r/t cva. Will defer to NS when appropriate to restart. Referral made to [place] for acute rehab (3) Diabetes Qualifiers: Diabetes mellitus type: type 2
--- NOTE | 2017-11-12 10:47 | P.PNNS ---
Subjective Interval history: Pt awake and alert. Sitting up in chair. States incisional pain controlled. No radiculopathy in LEs. Some paresthesias in right leg no particular distribution but mild. Physical Exam Vital signs: Vital Signs 11/11/17 12:00 11/11/17 16:00 11/11/17 20:00 Temperature 98.5 F 97.7 F 98.0 F Pulse Rate 87 101 H 93 H Respiratory Rate 18 18 19 Blood Pressure 93/56 L 122/60 140/74 Pulse Oximetry 99 100 100 11/12/17 00:00 11/12/17 04:00 11/12/17 08:00 Temperature 97.6 F 97.7 F 97.9 F Pulse Rate 107 H 105 H 98 H Respiratory Rate 18 18 Blood Pressure 106/65 113/65 98/55 L Pulse Oximetry 96 96 94 L Intake & Output 11/11/17 11/12/17 11/12/17 18:59 06:59 18:59 Intake Total 1770 / 1770 1000 / 1000 Output Total 1030 / 1030 1305 / 1305 Balance 740 / 740 -1305 / -1305 1000 / 1000 Weight 129 kg Intake: IV 1120 / 1120 1000 / 1000 LR 1000 mL Inj 1,000 ML @ 30 1000 / 1000 1000 / 1000 mls/hr IV.SIG .Q24H [facility] Rx#: [id number] Ancef Inj 2,000 MG In NS Inj 120 / 120 100 ML @ 240 mls/hr IV.SIG Q8H [facility] Rx#:[id number] Oral 650 / 650 Output: Urine 950 / 950 750 / 750 Urine Amount (Catheter) 450 / 450 Indwelling Urethral Catheter 450 / 450 Wound Drainage 80 / 80 105 / 105 # 1 Lower Medial Back 80 / 80 105 / 105 - Constitutional no acute distress - Routine HEENT Exam Head: Present: normocephalic, atraumatic Eye: Present: PERRL - Routine Neck Exam Present: trachea midline - Routine Respiratory Exam Present: CTA bilaterally. Absent: respiratory distress, rhonchi, wheezes - Routine Cardiovascular Exam Present: RRR, S1, S2. Absent: murmur - Routine Abdominal Exam Present: soft, normoactive bowel sounds. Absent: tenderness - Routine Skin Exam Absent: cyanosis, erythema Comments: KINZA drain in place still draining a good amount of bloody drainage. - Routine Neurological Exam Present: alert, oriented X3, motor deficit (Right EHL weakness 4/5, otherwise 5/ 5 strength in LEs.), moving all extremities. Absent: sensory deficit, altered mental status - Routine Psychiatric Exam Present: cooperative. Absent: anxious, agitated - Urinary Catheter Management Indwelling Urethral Catheter Cath placed during this visit: yes Reason for continuing: Other continuation reason Insertion date: 11/10/17 Insertion time: 09:00 Assessment and Plan - Assessment (1) Lumbar back pain Code(s): M54.5 - Low back pain Status: Acute (2) Spinal stenosis Code(s): M48.00 - Spinal stenosis, site unspecified Status: Acute (3) Diabetes Code(s): E11.9 - Type 2 diabetes mellitus without complications Status: Acute Qualifiers: Diabetes mellitus type: type 2 (4) Hypertension Code(s): I10 - Essential (primary) hypertension Status: Acute - Plan A: 77 y/o M s/p L3/L4 and L4/L5 TLIF with cage and pedicle screw fixation. P: Discontinue Dilaudid [employer] Continue with KINZA drain Continue with current care. Continue with PT
[2017-11-12] MEDS: Acetaminophen/Codeine 300/30 MG Tablet PO PRN ×2 (14:20→20:47)
[2017-11-12] MEDS: Methocarbamol 500 MG Tablet PO SCH (21:08)
[2017-11-12] MEDS: Enoxaparin Inj 40 MG/0.4 ML Syringe SQ SCH (21:09)
[2017-11-13] MEDS: Acetaminophen/Codeine 300/30 MG Tablet PO PRN ×3 (06:34→19:19)
[2017-11-13] MEDS: Folic Acid 1 MG Tablet PO SCH (09:00)
[2017-11-13] MEDS: Senna/Docusate Sodium 8.6/50 MG Tablet PO SCH ×2 (09:00→21:04)
[2017-11-13] MEDS: Metoprolol Tartrate 25 MG Tablet PO SCH ×2 (09:00→21:04)
[2017-11-13] MEDS: glipiZIDE 10 MG Tablet PO SCH ×2 (09:00→21:03)
--- NOTE | 2017-11-13 15:53 | P.PNFP ---
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 Physical Exam Vital signs: Vital Signs 11/12/17 20:00 11/13/17 00:00 11/13/17 04:00 Temperature 98.9 F 98.3 F 98.3 F Pulse Rate 114 H 92 H 99 H Respiratory Rate 19 18 18 Blood Pressure 124/58 L 112/64 125/58 L Pulse Oximetry 97 96 98 11/13/17 08:00 11/13/17 12:00 Temperature 98.1 F 98.4 F Pulse Rate 99 H 94 H Respiratory Rate 20 18 Blood Pressure 129/63 113/64 Pulse Oximetry 97 98 Intake & Output 11/12/17 11/13/17 11/13/17 18:59 06:59 18:59 Intake Total 1600 / 1600 Output Total 1150 / 1150 1200 / 1200 80 / 80 Balance 450 / 450 -1200 / -1200 -80 / -80 Weight 128.6 kg Intake: IV 1000 / 1000 LR 1000 mL Inj 1,000 ML @ 30 1000 / 1000 mls/hr IV.SIG .Q24H [facility] Rx#: [id number] Oral 600 / 600 Output: Urine 800 / 800 Urine Amount (Catheter) 350 / 350 1000 / 1000 Indwelling Urethral Catheter 350 / 350 1000 / 1000 Wound Drainage 200 / 200 80 / 80 # 1 Lower Medial Back 200 / 200 80 / 80 - Constitutional no acute distress - Routine HEENT Exam Head: Present: normocephalic Eye: Present: PERRL ENT: Present: mucous membranes moist - Routine Neck Exam Present: supple - Routine Respiratory Exam Present: CTA bilaterally - Routine Cardiovascular Exam Present: S1, S2 - Routine Abdominal Exam Present: soft, normoactive bowel sounds - Routine Extremities Exam Present: pulses intact - Routine Skin Exam Present: dry, warm - Routine Neurological Exam Present: alert, oriented X3 - Routine Psychiatric Exam Present: cooperative - Urinary Catheter Management Indwelling Urethral Catheter Cath placed during this visit: yes Reason for continuing: Acute urinary retention Insertion date: 11/10/17 Insertion time: 09:00 Assessment and Plan - Assessment (1) Lumbar back pain Code(s): M54.5 - Low back pain Status: Acute (2) Spinal stenosis Code(s): M48.00 - Spinal stenosis, site unspecified Status: Acute Plan: s/p lumbar surgery (3) Diabetes Code(s): E11.9 - Type 2 diabetes mellitus without complications Status: Acute Plan: accuchecks with coverage (4) Hypertension Code(s): I10 - Essential (primary) hypertension Status: Acute Plan: monitor bp and continue metoprolol - Assessment and Plan 11/11/17- Seen this am, uneventful night reported. Pain controlled with Driver/Guide, Kinza drain in place, SP L3-L4, L4-5 laminectomy. Denies any nausea, tolerating diet. PT to eval 11/12/17 Pain controlled Vss afebrile. Spouse concerned about restarting warfarin r/t cva. Will defer to NS when appropriate to restart. Referral made to [facility] for acute rehab 11/13/17- complains of incision discomfort, denies radiculopathy. Increased drainage around KINZA site, Coumadin to be held tonight,possibly restart tomorrow. Tolerating diet, Pt/OT participations. (3) Diabetes Qualifiers: Diabetes mellitus type: type 2
--- NOTE | 2017-11-13 17:17 | P.PNNS ---
Subjective Interval history: Pt awake and alert. Complains of incisional back pain. Pt states he was up in a chair for over 3 hours. No radiculopathy or paresthesias in LEs. KINZA drain continues to drain a lot. He is on Lovenox. Pt states he has not had a bm no abdominal pain but starting to feel constipated. Physical Exam Vital signs: Vital Signs 11/12/17 20:00 11/13/17 00:00 11/13/17 04:00 Temperature 98.9 F 98.3 F 98.3 F Pulse Rate 114 H 92 H 99 H Respiratory Rate 19 18 18 Blood Pressure 124/58 L 112/64 125/58 L Pulse Oximetry 97 96 98 11/13/17 08:00 11/13/17 12:00 11/13/17 16:00 Temperature 98.1 F 98.4 F 98.1 F Pulse Rate 99 H 94 H 96 H Respiratory Rate 20 18 18 Blood Pressure 129/63 113/64 129/76 Pulse Oximetry 97 98 99 Intake & Output 11/12/17 11/13/17 11/13/17 18:59 06:59 18:59 Intake Total 1600 / 1600 Output Total 1150 / 1150 1200 / 1200 80 / 80 Balance 450 / 450 -1200 / -1200 -80 / -80 Weight 128.6 kg Intake: IV 1000 / 1000 LR 1000 mL Inj 1,000 ML @ 30 1000 / 1000 mls/hr IV.SIG .Q24H [facility] Rx#: [id number] Oral 600 / 600 Output: Urine 800 / 800 Urine Amount (Catheter) 350 / 350 1000 / 1000 Indwelling Urethral Catheter 350 / 350 1000 / 1000 Wound Drainage 200 / 200 80 / 80 # 1 Lower Medial Back 200 / 200 80 / 80 - Constitutional no acute distress, obese, cooperative - Routine HEENT Exam Head: Present: normocephalic, atraumatic Eye: Present: PERRL ENT: Present: oropharynx clear - Routine Respiratory Exam Present: CTA bilaterally. Absent: respiratory distress, rhonchi, wheezes - Routine Cardiovascular Exam Present: RRR, S1, S2. Absent: murmur - Routine Abdominal Exam Present: soft, normoactive bowel sounds. Absent: tenderness, firm - Routine Skin Exam Absent: cyanosis, erythema - Routine Neurological Exam Present: alert, oriented X3, moving all extremities, normal speech. Absent: sensory deficit, motor deficit - Routine Psychiatric Exam Present: normal affect, cooperative. Absent: anxious, agitated - Urinary Catheter Management Indwelling Urethral Catheter Cath placed during this visit: yes Reason for continuing: Acute urinary retention Insertion date: 11/10/17 Insertion time: 09:00 Assessment and Plan - Assessment (1) Lumbar back pain Code(s): M54.5 - Low back pain Status: Acute (2) Spinal stenosis Code(s): M48.00 - Spinal stenosis, site unspecified Status: Acute (3) Diabetes Code(s): E11.9 - Type 2 diabetes mellitus without complications Status: Acute Qualifiers: Diabetes mellitus type: type 2 (4) Hypertension Code(s): I10 - Essential (primary) hypertension Status: Acute - Plan A: 77 y/o M s/p L3/L4 and L4/L5 TLIF with cage and pedicle screw fixation. P: Continue with KINZA drain. Discussed with Dr. Lowe. Continue drain for another day. Pt is on Lovenox. Continue with current care. Continue with PT Pt has gotten laxatives. We will give suppository.
[2017-11-13] MEDS: Enoxaparin Inj 40 MG/0.4 ML Syringe SQ SCH (21:05)
[2017-11-13] MEDS: Methocarbamol 500 MG Tablet PO SCH (21:06)
[2017-11-14] MEDS: Acetaminophen/Codeine 300/30 MG Tablet PO PRN ×4 (02:56→22:19)
[2017-11-14 05:36] LABS: Hematocrit 31.2 % (39.0-51.0); Hemoglobin 10.5 gm/dL (13.0-17.0); Mean Corpuscular HGB Conc 33.7 % (32.0-36.0); Mean Corpuscular Hemoglobin 31.2 pg (27.0-34.0); Mean Corpuscular Volume 92.7 fL (80.0-100.0); Platelet Count 165 th/mm3 (150-450); Red Blood Count 3.37 mil/mm3 (4.50-5.90); Red Cell Distribution Width 15.4 % (11.6-17.2); White Blood Count 9.6 th/mm3 (4.0-11.0)
[2017-11-14 05:57] LABS: INR 1.1 Ratio; Prothrombin Time 11.1 sec (9.8-11.6)
[2017-11-14 06:18] LABS: Anion Gap 10 meq/L (5-15); Blood Urea Nitrogen 13 mg/dL (7-18); Calcium 8.1 mg/dL (8.5-10.1); Carbon Dioxide 28.4 meq/L (21.0-32.0); Chloride 104 meq/L (98-107); Glomerular Filtration Rate Greater Than 89 mL/min (>89); Glucose,Random 51 mg/dL (74-106); Potassium 3.3 meq/L (3.5-5.1); Sodium 142 meq/L (136-145)
[2017-11-14] MEDS: Senna/Docusate Sodium 8.6/50 MG Tablet PO SCH ×2 (10:01→20:23)
[2017-11-14] MEDS: Metoprolol Tartrate 25 MG Tablet PO SCH ×2 (10:01→20:22)
[2017-11-14] MEDS: Folic Acid 1 MG Tablet PO SCH (10:01)
[2017-11-14] MEDS: glipiZIDE 10 MG Tablet PO SCH (10:02)
--- NOTE | 2017-11-14 10:47 | P.PNFP ---
Subjective Interval history: He tells me he is receiving laxatives for constipation. He is hopeful for D/C to rehab early next week pending NS clearance. Results - Labs Result diagrams: 11/14/17 04:02 11/14/17 04:02 Abnormal lab results 11/14/17 11/14/17 11/14/17 Range/Units 04:02 04:02 08:13 RBC 3.37 L (4.50-5.90) mil/mm3 Hgb 10.5 L (13.0-17.0) gm/dL Hct 31.2 L (39.0-51.0) % Potassium 3.3 L (3.5-5.1) meq/L Creatinine 0.53 L (0.60-1.30) mg/dL POC Glucose 66 L (68-110) mg/dl Random Glucose 51 L (74-106) mg/dL Calcium 8.1 L (8.5-10.1) mg/dL Short CBC 11/14/17 Range/Units 04:02 WBC 9.6 (4.0-11.0) th/mm3 Hgb 10.5 L (13.0-17.0) gm/dL Hct 31.2 L (39.0-51.0) % Plt Count 165 (150-450) th/mm3 BMP 11/14/17 04:02 Sodium 142 Potassium 3.3 L Chloride 104 Carbon Dioxide 28.4 BUN 13 Creatinine 0.53 L Calcium 8.1 L Physical Exam Vital signs: Vital Signs 11/13/17 12:00 11/13/17 16:00 11/13/17 20:00 Temperature 98.4 F 98.1 F 97.6 F Pulse Rate 94 H 96 H 109 H Respiratory Rate 18 18 18 Blood Pressure 113/64 129/76 139/78 Pulse Oximetry 98 99 98 11/14/17 00:00 11/14/17 04:00 11/14/17 08:00 Temperature 98.1 F 98.1 F 98.2 F Pulse Rate 91 H 95 H 94 H Respiratory Rate 18 18 16 Blood Pressure 132/72 128/69 126/68 Pulse Oximetry 97 97 94 L Intake & Output 11/13/17 11/14/17 11/14/17 18:59 06:59 18:59 Intake Total 1200 / 1200 0 / 0 Output Total 1230 / 1230 2500 / 2500 Balance -30 / -30 -2500 / -2500 0 / 0 Intake: IV 0 / 0 Oral 1200 / 1200 Output: Urine 1250 / 1250 Urine Amount (Catheter) 1150 / 1150 1250 / 1250 Indwelling Urethral Catheter 1150 / 1150 1250 / 1250 Wound Drainage 80 / 80 # 1 Lower Medial Back 80 / 80 Other: # Bowel Movements 0 1 - Constitutional no acute distress - Routine HEENT Exam Head: Present: normocephalic, atraumatic Eye: Present: PERRL, normal accommodation ENT: Present: mucous membranes moist - Routine Neck Exam Present: supple, full ROM - Routine Respiratory Exam Present: CTA bilaterally - Routine Cardiovascular Exam Present: RRR, S1, S2 - Routine Abdominal Exam Present: soft, normoactive bowel sounds - Routine Extremities Exam Present: full ROM - Routine Neurological Exam Present: alert, oriented X3 - Detailed Neurological Exam: Coma Scale Eye Opening: Spontaneous Verbal Response: Oriented Motor Response: Obey commands [place] Coma Scale Total: 15 - Routine Psychiatric Exam Present: normal affect, normal thought process - Urinary Catheter Management Indwelling Urethral Catheter Cath placed during this visit: yes Urethral indwelling: Yes Reason for continuing: Acute urinary retention Insertion date: 11/10/17 Insertion time: 09:00 Assessment and Plan - Assessment (1) Lumbar back pain Code(s): M54.5 - Low back pain Status: Acute (2) Spinal stenosis Code(s): M48.00 - Spinal stenosis, site unspecified Status: Acute Plan: s/p lumbar surgery with KINZA in place still draining. NS following. (3) Diabetes Code(s): E11.9 - Type 2 diabetes mellitus without complications Status: Acute Plan: accuchecks with coverage (4) Hypertension Code(s): I10 - Essential (primary) hypertension Status: Acute Plan: monitor bp and continue metoprolol. HTN controlled - Assessment and Plan 11/11/17- Seen this am, uneventful night reported. Pain controlled with Bail Bondsman, Kinza drain in place, SP L3-L4, L4-5 laminectomy. Denies any nausea, tolerating diet. PT to eval 11/12/17 Pain controlled Vss afebrile. Spouse concerned about restarting warfarin r/t cva. Will defer to NS when appropriate to restart. Referral made to [facility] for acute rehab 11/13/17- complains of incision discomfort, denies radiculopathy. Increased drainage around KINZA site, Coumadin to be held tonight,possibly restart tomorrow. Tolerating diet, Pt/OT participations. 11/14/17 - Coumadin remains on hold until cleared to restart per NS. KINZA drain remains with significant output. He has LBP S/P lumbar lami and is hopeful for NS clearance for rehab nest week. Discussed Condition With: Patient and spouse at bedside (3) Diabetes Qualifiers: Diabetes mellitus type: type 2
--- NOTE | 2017-11-14 12:04 | P.PNNS ---
Subjective Interval history: Did well overnight, ambulated the [place] Physical Exam Vital signs: Vital Signs 11/13/17 16:00 11/13/17 20:00 11/14/17 00:00 Temperature 98.1 F 97.6 F 98.1 F Pulse Rate 96 H 109 H 91 H Respiratory Rate 18 18 18 Blood Pressure 129/76 139/78 132/72 Pulse Oximetry 99 98 97 11/14/17 04:00 11/14/17 08:00 Temperature 98.1 F 98.2 F Pulse Rate 95 H 94 H Respiratory Rate 18 16 Blood Pressure 128/69 126/68 Pulse Oximetry 97 94 L Intake & Output 11/13/17 11/14/17 11/14/17 18:59 06:59 18:59 Intake Total 1200 / 1200 0 / 0 Output Total 1230 / 1230 2500 / 2500 70 / 70 Balance -30 / -30 -2500 / -2500 -70 / -70 Intake: IV 0 / 0 Oral 1200 / 1200 Output: Urine 1250 / 1250 Urine Amount (Catheter) 1150 / 1150 1250 / 1250 Indwelling Urethral Catheter 1150 / 1150 1250 / 1250 Wound Drainage 80 / 80 70 / 70 # 1 Lower Medial Back 80 / 80 70 / 70 Other: Date of Last Bowel Movement 11/13/17 # Bowel Movements 0 1 Narrative: A&O x 3 Motor 5/5 UE/LE Dressing c/d/i - Urinary Catheter Management Indwelling Urethral Catheter Cath placed during this visit: yes Urethral indwelling: Yes Reason for continuing: Acute urinary retention Insertion date: 11/10/17 Insertion time: 09:00 Assessment and Plan - Plan A: 77 y/o M s/p L3/L4 and L4/L5 TLIF with cage and pedicle screw fixation. P: Continue with KINZA drain (drain with 80cc out this past shift). Continue drain for another day. Pt is on Lovenox. Continue with current care. Continue with PT -- plan for rehab next week
[2017-11-14] MEDS: Methocarbamol 500 MG Tablet PO SCH (20:21)
[2017-11-14] MEDS: glipiZIDE 5 MG Tablet PO SCH (20:22)
[2017-11-14] MEDS: Enoxaparin Inj 40 MG/0.4 ML Syringe SQ SCH (22:19)
[2017-11-15] MEDS: Acetaminophen/Codeine 300/30 MG Tablet PO PRN ×4 (04:08→23:50)
[2017-11-15 04:55] LABS: INR 1.1 Ratio; Prothrombin Time 10.9 sec (9.8-11.6)
[2017-11-15] MEDS: Metoprolol Tartrate 25 MG Tablet PO SCH ×2 (08:46→21:34)
[2017-11-15] MEDS: glipiZIDE 5 MG Tablet PO SCH ×2 (08:46→21:34)
[2017-11-15] MEDS: Folic Acid 1 MG Tablet PO SCH (08:46)
[2017-11-15] MEDS: Senna/Docusate Sodium 8.6/50 MG Tablet PO SCH ×2 (08:46→21:34)
--- NOTE | 2017-11-15 10:29 | P.PNFP ---
Subjective Interval history: He tells me pain is controlled and he is hopeful for D/C to rehab later this week. Will F/U NS recommendations and await OK for D/C. Results - Labs Result diagrams: 11/14/17 04:02 11/14/17 04:02 Abnormal lab results 11/14/17 11/15/17 Range/Units 17:54 06:25 POC Glucose 141 H 125 H (68-110) mg/dl Physical Exam Vital signs: Vital Signs 11/14/17 12:00 11/14/17 16:00 11/14/17 21:10 Temperature 97.8 F 97.9 F Pulse Rate 100 H 90 96 H Respiratory Rate 16 16 Blood Pressure 122/71 126/66 Pulse Oximetry 97 100 11/14/17 22:00 11/14/17 23:15 11/15/17 00:00 Temperature 98.2 F 97.4 F L Pulse Rate 92 H 89 92 H Respiratory Rate 18 18 Blood Pressure 148/80 H 157/92 H Pulse Oximetry 96 95 11/15/17 04:00 11/15/17 08:31 Temperature 97.3 F L 97.2 F L Pulse Rate 99 H 98 H Respiratory Rate 18 18 Blood Pressure 114/65 136/75 Pulse Oximetry 98 99 Intake & Output 11/14/17 11/15/17 11/15/17 18:59 06:59 18:59 Intake Total 680 / 680 400 / 400 Output Total 870 / 870 1275 / 1275 Balance -190 / -190 -875 / -875 Weight 128.6 kg Intake: IV 0 / 0 Oral 680 / 680 400 / 400 Output: Urine 800 / 800 1150 / 1150 Wound Drainage 70 / 70 125 / 125 # 1 Lower Medial Back 70 / 70 125 / 125 Other: Date of Last Bowel Movement 11/13/17 11/13/17 11/13/17 - Constitutional no acute distress - Routine HEENT Exam Head: Present: normocephalic Eye: Present: PERRL, normal accommodation ENT: Present: mucous membranes moist - Routine Neck Exam Present: supple, full ROM - Routine Respiratory Exam Present: CTA bilaterally - Routine Cardiovascular Exam Present: RRR, S1, S2 - Routine Abdominal Exam Present: soft, normoactive bowel sounds - Routine Extremities Exam Comments: KINZA drain in place with intact sutures in low back. - Routine Skin Exam Present: intact - Routine Neurological Exam Present: alert, oriented X3 - Detailed Neurological Exam: Coma Scale Eye Opening: Spontaneous Verbal Response: Oriented Motor Response: Obey commands [place] Coma Scale Total: 15 - Routine Psychiatric Exam Present: normal affect - Urinary Catheter Management Indwelling Urethral Catheter Cath placed during this visit: yes Urethral indwelling: Yes Reason for continuing: Acute urinary retention Insertion date: 11/10/17 Insertion time: 09:00 Assessment and Plan - Assessment (1) Lumbar back pain Code(s): M54.5 - Low back pain Status: Acute Plan: S/P Lumbar Lami and NS following. KINZA in place and NS plans D/C KINZA soon and refer for rehab placement. (2) Spinal stenosis Code(s): M48.00 - Spinal stenosis, site unspecified Status: Acute Plan: s/p lumbar surgery with KINZA in place still draining. NS following. (3) Diabetes Code(s): E11.9 - Type 2 diabetes mellitus without complications Status: Acute Plan: accuchecks with coverage (4) Hypertension Code(s): I10 - Essential (primary) hypertension Status: Acute Plan: monitor bp and continue metoprolol. HTN controlled - Assessment and Plan 11/11/17- Seen this am, uneventful night reported. Pain controlled with Orchard Worker, Kinza drain in place, SP L3-L4, L4-5 laminectomy. Denies any nausea, tolerating diet. PT to eval 11/12/17 Pain controlled Vss afebrile. Spouse concerned about restarting warfarin r/t cva. Will defer to NS when appropriate to restart. Referral made to [facility] for acute rehab 11/13/17- complains of incision discomfort, denies radiculopathy. Increased drainage around KINZA site, Coumadin to be held tonight,possibly restart tomorrow. Tolerating diet, Pt/OT participations. 11/14/17 - Coumadin remains on hold until cleared to restart per NS. KINZA drain remains with significant output. He has LBP S/P lumbar lami and is hopeful for NS clearance for rehab nest week. 11/15/17 - K is low, will add KCL and recheck in 2-3 days. F/U NS recommendations. Plan D/C to rehab when NS clears. Plan KINZA out per NS Discussed Condition With: Patient Discharge Planning: Rehab when cleared by NS. (3) Diabetes Qualifiers: Diabetes mellitus type: type 2 (4) Hypertension Qualifiers: Hypertension type: essential hypertension Qualified Code(s): I10 - Essential (primary) hypertension
--- NOTE | 2017-11-15 11:15 | P.PNNS ---
Subjective Interval history: Drain still with high output (125 overnight). Otherwise no issues. Physical Exam Vital signs: Vital Signs 11/14/17 12:00 11/14/17 16:00 11/14/17 21:10 Temperature 97.8 F 97.9 F Pulse Rate 100 H 90 96 H Respiratory Rate 16 16 Blood Pressure 122/71 126/66 Pulse Oximetry 97 100 11/14/17 22:00 11/14/17 23:15 11/15/17 00:00 Temperature 98.2 F 97.4 F L Pulse Rate 92 H 89 92 H Respiratory Rate 18 18 Blood Pressure 148/80 H 157/92 H Pulse Oximetry 96 95 11/15/17 04:00 11/15/17 08:31 Temperature 97.3 F L 97.2 F L Pulse Rate 99 H 98 H Respiratory Rate 18 18 Blood Pressure 114/65 136/75 Pulse Oximetry 98 99 Intake & Output 11/14/17 11/15/17 11/15/17 18:59 06:59 18:59 Intake Total 680 / 680 400 / 400 Output Total 870 / 870 1275 / 1275 Balance -190 / -190 -875 / -875 Weight 128.6 kg Intake: IV 0 / 0 Oral 680 / 680 400 / 400 Output: Urine 800 / 800 1150 / 1150 Wound Drainage 70 / 70 125 / 125 # 1 Lower Medial Back 70 / 70 125 / 125 Other: Date of Last Bowel Movement 11/13/17 11/13/17 11/13/17 Narrative: A&O x 3 Motor 5/5 UE/LE Dressing c/d/i - Urinary Catheter Management Indwelling Urethral Catheter Cath placed during this visit: yes Urethral indwelling: Yes Reason for continuing: Acute urinary retention Insertion date: 11/10/17 Insertion time: 09:00 Assessment and Plan - Plan A: 77 y/o M s/p L3/L4 and L4/L5 TLIF with cage and pedicle screw fixation. P: Continue with KINZA drain (drain with 125cc out this past shift). Continue drain for another day. Pt is on Lovenox. Continue with current care. Continue with PT -- plan for rehab next week once drain is out likely Thursday (d/w [facility] physician)
--- NOTE | 2017-11-15 21:26 | CT ---
EXAM DATE: 11/15/2017 9:20 PM EDT AGE/SEX: 77 years / Male INDICATIONS: Stroke alert, facial numbness, slurred speech, left sided weakness. CLINICAL DATA: This is the patient's initial encounter. Patient reports that signs and symptoms have been present for 1 day and indicates a pain score of 0/10. MEDICAL/SURGICAL HISTORY: Cardiovascular disease. Stroke. Hypertension. Diabetes. None. RADIATION DOSE: 50.11 CTDI (mGy) COMPARISON: No prior exams available for comparison. TECHNIQUE: CT of the head without contrast. Using automated exposure control and adjustment of the mA and/or kV according to patient size, radiation dose was kept as low as reasonably achievable to ob tain optimal diagnostic quality images. DICOM format image data is available electronically for revi ew and comparison. FINDINGS: Cerebrum: The ventricles are normal for age. No evidence of midline shift, mass lesion, hemorrhage or acute infarction. No extraaxial fluid collections are seen. Posterior Fossa: The cerebellum and brainstem are intact. The 4th ventricle is midline. The cerebe llopontine angle is unremarkable. Extracranial: The visualized portion of the orbits is intact. Skull: The calvaria is intact. No evidence of skull fracture. CONCLUSION: No acute intracranial findings. Discussed with Dr. Wang at 1725 . Electronically signed by: Sohail Jiménez MD 11/15/2017 9:25 PM EDT
[2017-11-15 21:31] LABS: Baso % (Auto) 0.5 % (0.0-2.0); Eos # (Auto) 0.3 th/mm3 (0.0-0.4); Eos % (Auto) 3.6 % (0.0-4.0); Hematocrit 34.5 % (39.0-51.0); Hemoglobin 11.4 gm/dL (13.0-17.0); Lymph # (Auto) 1.9 th/mm3 (1.0-4.8); Lymph % (Auto) 24.4 % (9.0-44.0); Mean Corpuscular HGB Conc 33.1 % (32.0-36.0); Mean Corpuscular Hemoglobin 30.7 pg (27.0-34.0); Mean Corpuscular Volume 92.8 fL (80.0-100.0); Mean Platelet Volume 8.6 fL (7.0-11.0); Mono % (Auto) 13.1 % (0.0-8.0); Neut # (Auto) 4.5 th/mm3 (1.8-7.7); Neut % (Auto) 58.4 % (16.0-70.0); Platelet Count 237 th/mm3 (150-450); Red Blood Count 3.72 mil/mm3 (4.50-5.90); Red Cell Distribution Width 15.4 % (11.6-17.2); White Blood Count 7.6 th/mm3 (4.0-11.0)
[2017-11-15] MEDS: Potassium Chloride 10 MEQ ER Capsule PO SCH (21:33)
[2017-11-15 21:50] LABS: Activated Partial Thrombo Time 27.1 sec (24.3-30.1); INR 1.1 Ratio; Prothrombin Time 10.7 sec (9.8-11.6)
[2017-11-15] MEDS: Enoxaparin Inj 40 MG/0.4 ML Syringe SQ SCH (22:04)
[2017-11-15] MEDS: Methocarbamol 500 MG Tablet PO SCH (22:04)
[2017-11-15 22:49] LABS: Creatine Kinase 83 U/L (39-308)
[2017-11-16] MEDS: Acetaminophen/Codeine 300/30 MG Tablet PO PRN ×4 (04:59→17:12)
[2017-11-16] MEDS: Potassium Chloride 10 MEQ ER Capsule PO SCH ×2 (09:26→20:43)
[2017-11-16] MEDS: glipiZIDE 5 MG Tablet PO SCH ×2 (09:27→20:43)
[2017-11-16] MEDS: Folic Acid 1 MG Tablet PO SCH (09:27)
[2017-11-16] MEDS: Metoprolol Tartrate 25 MG Tablet PO SCH ×2 (09:27→20:43)
[2017-11-16] MEDS: Senna/Docusate Sodium 8.6/50 MG Tablet PO SCH ×2 (09:30→20:43)
[2017-11-16 09:51] VITALS: RESP 18
[2017-11-16 09:53] LABS: INR 1.1 Ratio
--- NOTE | 2017-11-16 09:54 | MB ---
cc: Albert Reynoso MD DATE: 11/16/2017 HISTORY OF PRESENT ILLNESS: A 77-year-old right-handed man with a [id number] diabetes, atrial fibrillation, usually on Coumadin. He had a stroke in 06/2009, which left him weak on the left side with some left hand and leg numbness which he still has a little bit. He was having low back pain and left lower extremity thigh pain for which he had surgery and that has helped his left lower extremity thigh pain quite a bit. He still has a drain in his back and yesterday he had felt like he was numb on his face, left greater than right, and the corner of his mouth and his tongue. His speech was slurred and his thought maybe just had a hint of a left facial droop. It lasted about 5 minutes and cleared. REVIEW OF SYSTEMS: He denies any hypertension, hypercholesterolemia, CABG, stent, renal, hepatic, pulmonary disease, thyroid disease, lupus, ulcer, cancer, seizure. SOCIAL HISTORY: Nonsmoker and drinker, lives with his . FAMILY HISTORY: Negative for cancer or seizure. Positive for stroke in his mother. MEDICATIONS: 1. Tylenol. 2. Lovenox 40 every 24 hours. 3. Folic acid. 4. Lasix. 5. Glucophage. 6. Robaxin. 7. Imitrex. 8. Lopressor. 9. Senokot. 10. Ambien. PHYSICAL EXAMINATION: VITAL SIGNS: atrial fibrillation on the EKG, though sometimes appears to be some P waves. Afebrile, 87, 16, 138/75. NECK: There are no carotid bruits. HEART: Regular rhythm. No detect a murmur. NEUROLOGIC: Pupils are equal. Visual neves are full. Extraocular movements intact without nystagmus. Face moves symmetrically but normal sensation. Tongue was midline. There is meant and minimal or hint of a left drift. Otherwise, he has normal strength in upper and lower extremities bilaterally, except the right tibialis anterior appears to be weak about 3-/5. Toes are downgoing bilaterally. DTRs are absent throughout. Pinprick is diminished up to the knee bilaterally, a little bit more so on the right than the left, but pinprick is intact in the hands and face. He is not ataxic on [id number]-shod. Speech is fluent. He is not aphasic. There is no facial droop with slurred speech at this time. LABORATORY DATA: CBC is normal. Basic metabolic profile normal yesterday except for a glucose of 182. Troponin was negative yesterday. CPK normal. ABGs 7.32,47, 254 on 11/10/2017. Coagulation studies normal. A CAT scan of his brain last night was read as nothing acute. CT shows some diffuse atrophy, small hyperintense area on the right deep basal ganglionic region. IMPRESSION: It sounds like a TIA. The worry is that he has had atrial fibrillation but not fully anticoagulated. He has a drain still in his back. When he can be anticoagulated as soon as possible would be the best when is cleared by neurosurgery. He was on Coumadin prior to this admission. We will check an MRI of the brain, MRA of the neck and [place] of [place], and I will be following him within the hospital. We will also check an echocardiogram on him. The patient does have a bit of weakness in the right tibialis anterior and neurosurgery has been notified of that. MD ALFREDO Fermin/gilbert , 09:11 AM , 09:19 AM
[2017-11-16] MEDS ORDERED: LORazepam 0.5 MG Tablet PO PRN (17:15)
--- NOTE | 2017-11-16 17:21 | P.PNFP ---
Subjective Interval history: had anxious episode last pm described as code neuro work up in progress pt has high anxiety levels will add ativan prn Results - Labs Result diagrams: 11/15/17 21:05 11/14/17 04:02 Abnormal lab results 11/15/17 11/15/17 11/15/17 Range/Units 18:19 20:52 21:05 RBC 3.72 L (4.50-5.90) mil/mm3 Hgb 11.4 L (13.0-17.0) gm/dL POC Hgb (Calc) (13.0-17.0) g/dL Hct 34.5 L (39.0-51.0) % POC Hct (39-51.0) % [place] % (Auto) 13.1 H (0.0-8.0) % [place] # (Auto) 1.0 H (0.0-0.9) th/mm3 Fibrinogen (227-377) mg/dL POC Chloride (102-111) mmol/L POC Glucose 112 H 206 H (68-110) mg/dl Troponin I (0.02-0.05) ng/mL 11/15/17 11/15/17 11/15/17 Range/Units 21:05 21:05 21:05 RBC (4.50-5.90) mil/mm3 Hgb (13.0-17.0) gm/dL POC Hgb (Calc) 11.2 L (13.0-17.0) g/dL Hct (39.0-51.0) % POC Hct 33.0 L (39-51.0) % [place] % (Auto) (0.0-8.0) % [place] # (Auto) (0.0-0.9) th/mm3 Fibrinogen 582 H (227-377) mg/dL POC Chloride 101 L (102-111) mmol/L POC Glucose 182 H (68-110) mg/dl Troponin I Less than 0.02 L (0.02-0.05) ng/mL 11/16/17 11/16/17 11/16/17 Range/Units 06:00 10:01 12:23 RBC (4.50-5.90) mil/mm3 Hgb (13.0-17.0) gm/dL POC Hgb (Calc) (13.0-17.0) g/dL Hct (39.0-51.0) % POC Hct (39-51.0) % [place] % (Auto) (0.0-8.0) % [place] # (Auto) (0.0-0.9) th/mm3 Fibrinogen (227-377) mg/dL POC Chloride (102-111) mmol/L POC Glucose 121 H 177 H 134 H (68-110) mg/dl Troponin I (0.02-0.05) ng/mL Short CBC 11/15/17 Range/Units 21:05 WBC 7.6 (4.0-11.0) th/mm3 Hgb 11.4 L (13.0-17.0) gm/dL Hct 34.5 L (39.0-51.0) % Plt Count 237 D (150-450) th/mm3 Cardiac Enzymes 11/15/17 Range/Units 21:05 Total Creatine Kinase 83 (39-308) U/L Troponin I Less than 0.02 L (0.02-0.05) ng/mL - Imaging Impressions Head CT 11/15/17 21:01 CONCLUSION: No acute intracranial findings. Discussed with Dr. Wang at 1725 . Physical Exam Vital signs: Vital Signs 11/15/17 20:00 11/15/17 20:50 11/15/17 20:58 Temperature 97.7 F 97.7 F Pulse Rate 112 H 111 H Respiratory Rate 18 19 Blood Pressure 130/65 147/86 H Pulse Oximetry 100 98 98 11/15/17 21:40 11/16/17 00:00 11/16/17 00:15 Temperature 98 F 97.9 F Pulse Rate 99 H 94 H 82 Respiratory Rate 18 19 Blood Pressure 139/69 124/78 Pulse Oximetry 100 100 11/16/17 04:00 11/16/17 08:00 11/16/17 12:00 Temperature 98.3 F 98.4 F 98.5 F Pulse Rate 87 92 H 88 Respiratory Rate 16 18 18 Blood Pressure 138/75 133/77 132/75 Pulse Oximetry 98 99 99 Intake & Output 11/15/17 11/16/17 11/16/17 18:59 06:59 18:59 Intake Total 1380 / 1380 Output Total 930 / 930 1920 / 1920 40 / 40 Balance -930 / -930 -540 / -540 -40 / -40 Intake: Oral 1380 / 1380 Output: Urine 450 / 450 Urine Amount (Catheter) 850 / 850 1425 / 1425 Indwelling Urethral Catheter 850 / 850 1425 / 1425 Wound Drainage 80 / 80 45 / 45 40 / 40 # 1 Lower Medial Back 80 / 80 45 / 45 40 / 40 Other: Date of Last Bowel Movement 11/13/17 11/13/17 - Constitutional no acute distress Comments: anxious - Routine HEENT Exam Head: Present: normocephalic Comments: may be some left sided weakness - Routine Neck Exam Present: supple, full ROM - Routine Respiratory Exam Present: CTA bilaterally - Routine Cardiovascular Exam Present: RRR - Routine Abdominal Exam Present: soft, normoactive bowel sounds - Routine Psychiatric Exam Present: anxious - Urinary Catheter Management Indwelling Urethral Catheter Cath placed during this visit: yes Urethral indwelling: Yes Reason for continuing: Acute urinary retention Insertion date: 11/10/17 Insertion time: 09:00 Assessment and Plan - Assessment (1) Lumbar back pain Code(s): M54.5 - Low back pain Status: Acute Plan: S/P Lumbar Lami and NS following. KINZA in place and NS plans D/C KINZA soon and refer for rehab placement. (2) Spinal stenosis Code(s): M48.00 - Spinal stenosis, site unspecified Status: Acute Plan: s/p lumbar surgery with KINZA in place still draining. NS following. (3) Diabetes Code(s): E11.9 - Type 2 diabetes mellitus without complications Status: Acute Plan: accuchecks with coverage (4) Hypertension Code(s): I10 - Essential (primary) hypertension Status: Acute Plan: monitor bp and continue metoprolol. HTN controlled - Assessment and Plan 11/11/17- Seen this am, uneventful night reported. Pain controlled with Taxi Driver, Kinza drain in place, SP L3-L4, L4-5 laminectomy. Denies any nausea, tolerating diet. PT to eval 11/12/17 Pain controlled Vss afebrile. Spouse concerned about restarting warfarin r/t cva. Will defer to NS when appropriate to restart. Referral made to [facility] for acute rehab 11/13/17- complains of incision discomfort, denies radiculopathy. Increased drainage around KINZA site, Coumadin to be held tonight,possibly restart tomorrow. Tolerating diet, Pt/OT participations. 11/14/17 - Coumadin remains on hold until cleared to restart per NS. KINZA drain remains with significant output. He has LBP S/P lumbar lami and is hopeful for NS clearance for rehab nest week. 11/15/17 - K is low, will add KCL and recheck in 2-3 days. F/U NS recommendations. Plan D/C to rehab when NS clears. Plan IKNZA out per NS 11/16 ?tia will add ativan for anxiety ct head neg (3) Diabetes Qualifiers: Diabetes mellitus type: type 2 (4) Hypertension Qualifiers: Hypertension type: essential hypertension Qualified Code(s): I10 - Essential (primary) hypertension
[2017-11-16 17:23] VITALS: O2SAT 96
--- NOTE | 2017-11-16 17:33 | US ---
EXAM DATE: 11/16/2017 4:23 PM EDT AGE/SEX: 77 years / Male INDICATIONS: Cerebrovascular accident. CLINICAL DATA: This is the patient's initial encounter. Patient reports that signs and symptoms have been present for 1 day and indicates a pain score of 0/10. MEDICAL/SURGICAL HISTORY: Hypertension. Arthritis. Atrial fibrillation. Back pain. Diabetes. Sugar int pain. Neck pain. Psoriasis. Sleep apnea. Spinal stenosis. . Bilateral cataract surgery. Hammer t oe correction. Left rotator cuff surgery. Sinus surgery. COMPARISON: No prior exams available for comparison. VELOCITY PARAMETERS: ICA/CCA Ratio: Right 1.3 , Left 1.3 ICA: Right 61.4 cm/sec, Left 73.5 cm/sec CCA: Right 47.1 cm/sec, Left 57.8 cm/sec ECA: Right 55.9 cm/sec, Left 69.9 cm/sec Vertebral: Right 40.5 cm/sec antegrade, Left 51.5 cm/sec antegrade FINDINGS: Right Carotid: No significant plaque is visualized.The waveforms are within normal limits. Left Carotid: No significant plaque is visualized. The waveforms are within normal limits. Other: None. CONCLUSION: 1. Right Internal Carotid Artery: No hemodynamically significant stenosis. 2. Left Internal Carotid Artery: No hemodynamically significant stenosis. Electronically signed by: Ramy Alcala MD 11/16/2017 4:26 PM EDT
--- NOTE | 2017-11-16 17:34 | MR ---
EXAM DATE: 11/16/2017 2:32 PM EDT AGE/SEX: 77 years / Male INDICATIONS: Stroke alert. Slurred speech. CLINICAL DATA: This is the patient's initial encounter. Patient reports that signs and symptoms have been present for 2 days and indicates a pain score of 0/10. MEDICAL/SURGICAL HISTORY: Hypertension. Diabetes mellitus type II. Fusion, lumbar. Sinus surge ry. Fistula surgery. COMPARISON: [facility] [place], CT HEAD W/O CONTRAST, 11/15/2017. . TECHNIQUE: Multiplanar, multisequence examination of the brain was performed without contrast. FINDINGS: Cerebrum: Mild cerebral atrophy is noted. No evidence of midline shift, mass lesion, hemorrhage or a cute infarction. No extraaxial fluid collections are seen. The pituitary gland and suprasellar cist lachelle are normal in configuration. White Matter: Mild periventricular and subcortical white matter small vessel ischemic changes are not ed bilaterally. Posterior Fossa: The cerebellum and brainstem are intact. The 4th ventricle is midli ne. The cerebellopontine angle is unremarkable. The cerebellar tonsils are normal in position. Diffusion Imaging: No focal areas of restricted diffusion are seen. No evidence of acute infarction . Extracranial: The visualized portions of the orbits and paranasal sinuses are unremarkable. CONCLUSION: 1. No acute infarct, acute hemorrhage, midline shift or extra axial fluid collections. 2. Mild periventricular and subcortical white matter small vessel ischemic changes bilaterally. 3. Mild cerebral atrophy. Electronically signed by: Ramy Alcala MD 11/16/2017 5:27 PM EDT
--- NOTE | 2017-11-16 17:35 | P.PNNS ---
Subjective Interval history: 11/16: had episode of speech difficulties and facial numbness last night. CT Brain neg for acute pathology, Dr. Reynoso consulted pt is awaiting MRI Brain. Pt on lovenox <Sarah Kirby - Last Filed: 11/17/17 08:57> Physical Exam Vital signs: Vital Signs 11/15/17 20:00 11/15/17 20:50 11/15/17 20:58 Temperature 97.7 F 97.7 F Pulse Rate 112 H 111 H Respiratory Rate 18 19 Blood Pressure 130/65 147/86 H Pulse Oximetry 100 98 98 11/15/17 21:40 11/16/17 00:00 11/16/17 00:15 Temperature 98 F 97.9 F Pulse Rate 99 H 94 H 82 Respiratory Rate 18 19 Blood Pressure 139/69 124/78 Pulse Oximetry 100 100 11/16/17 04:00 11/16/17 08:00 11/16/17 12:00 Temperature 98.3 F 98.4 F 98.5 F Pulse Rate 87 92 H 88 Respiratory Rate 16 18 18 Blood Pressure 138/75 133/77 132/75 Pulse Oximetry 98 99 99 11/16/17 16:00 Temperature 98.3 F Pulse Rate 93 H Respiratory Rate 18 Blood Pressure 135/77 Pulse Oximetry 96 Intake & Output 11/15/17 11/16/17 11/16/17 18:59 06:59 18:59 Intake Total 1380 / 1380 Output Total 930 / 930 1920 / 1920 40 / 40 Balance -930 / -930 -540 / -540 -40 / -40 Intake: Oral 1380 / 1380 Output: Urine 450 / 450 Urine Amount (Catheter) 850 / 850 1425 / 1425 Indwelling Urethral Catheter 850 / 850 1425 / 1425 Wound Drainage 80 / 80 45 / 45 40 / 40 # 1 Lower Medial Back 80 / 80 45 / 45 40 / 40 Other: Date of Last Bowel Movement 11/13/17 11/13/17 Narrative: KINZA drain with moderate 125 cc output overnight serosanguineous drainage wound with clean dry intact dressing inspected by Dr. Lowe moving all four extremities well symmetrically facial motor symmetric tongue midline EOMs intact pupils equal - Urinary Catheter Management Indwelling Urethral Catheter Cath placed during this visit: yes Urethral indwelling: Yes Reason for continuing: Acute urinary retention Insertion date: 11/10/17 Insertion time: 09:00 <Sarah Kirby - Last Filed: 11/17/17 08:57> - Urinary Catheter Management Indwelling Urethral Catheter Cath placed during this visit: no <Alber Loew - Last Filed: 11/20/17 14:55> Assessment and Plan - Plan A: 77 y/o M s/p L3/L4 and L4/L5 TLIF with cage and pedicle screw fixation. Transient episode of facial numbness and speech difficulties P: Continue with KINZA drain (drain with 125cc out this past shift). Continue drain for another day. Pt is on Lovenox. Continue with current care. Continue with PT -- plan for rehab next week once drain is out likely Thursday (d/w [facility]) Awaiting MRI Brain, stroke w/u in progress per Dr. Reynoso <Sarah Kirby - Last Filed: 11/17/17 08:57> - Plan The exam, history, and the medical decision-making described in the above note were completed with the assistance of the mid-level provider. I reviewed and agree with the findings presented. I attest that I had a [id number] encounter with the patient on the same day, and personally performed and documented my assessment and findings in the medical record. <Alber Lowe - Last Filed: 11/20/17 14:55>
--- NOTE | 2017-11-16 18:31 | ECHRPT ---
Indication: CVA/TIA CONCLUSIONS The left ventricular systolic function is normal with an estimated ejection fraction in the range of 55-60%. Normal left ventricular size and wall thickness. No apparent regional wall motion abnormality or valvular heart disease; however, the imaging that wa s obtained was very poor. BP: / HR: 92 Rhythm: Sinus MEASUREMENTS (Male / Female) Normal Values Technical Quality:very Poor 2D ECHO LV Diastolic Diameter PLAX 4.3 cm 4.2 - 5.9 / 3.9 - 5.3 cm LV Systolic Diameter PLAX 3.2 cm IVS Diastolic Thickness 0.9 cm 0.6 - 1.0 / 0.6 - 0.9 cm LVPW Diastolic Thickness 0.9 cm 0.6 - 1.0 / 0.6 - 0.9 cm LV Relative Wall Thickness 0.4 LVOT Diameter 2.0 cm M-MODE Aortic Root Diameter MM 4.3 cm LA Systolic Diameter MM 4.2 cm LA Ao Ratio MM 1.0 AV Cusp Separation MM 2.1 cm DOPPLER AV Peak Velocity 133.0 cm/s AV Peak Gradient 7.1 mmHg LVOT Peak Velocity 79.0 cm/s LVOT Peak Gradient 2.5 mmHg AV Area Cont Eq pk 1.9 cm LV E' Septal Velocity 3.1 cm/s PV Peak Velocity 85.5 cm/s PV Peak Gradient 2.9 mmHg FINDINGS LEFT VENTRICLE The left ventricular systolic function is normal with an estimated ejection fraction in the range of 55-60%. Normal left ventricular size and wall thickness. No apparent regional wall motion abnormality or valvular heart disease; however, this was a technica lly poor study. RIGHT VENTRICLE Normal right ventricular size and systolic function. LEFT ATRIUM The left atrial size is normal. RIGHT ATRIUM The right atrial size is normal. ATRIAL SEPTUM Normal atrial septal thickness without atrial level shunting by limited color doppler interrogation. AORTA The aortic root and proximal ascending aorta are normal in size on limited imaging. MITRAL VALVE Structurally normal mitral valve. Trace mitral regurgitation. Limited imaging AORTIC VALVE Trileaflet aortic valve. No significant aortic regurgitation or stenosis. TRICUSPID VALVE Structurally normal tricuspid valve. Trivial Tricuspid Vavle Regurgitation. PULMONARY VALVE The pulmonary valve is not well visualized. VESSELS the inferior vena cava is not well visualized. PERICARDIUM No pericardial effusion. Marilu Matson MD (Electronically Signed) Final Date:16 November 2017 18:30
--- NOTE | 2017-11-16 19:03 | ECG ---
Date Performed: 11/15/2017 Time Performed: 21:04:05 PTAGE: 77 years EKG: ATRIAL FIBRILLATION WITH RAPID VENTRICULAR RESPONSE POSSIBLE RIGHT VENTRICULAR CONDUCTION D SVETLANAAY MINIMAL ST DEPRESSION ABNORMAL RHYTHM ECG INTERPRETATION BASED ON A DEFAULT AGE OF 40 YEARS NO PREVIOUS TRACING DOCTOR: Lisa Rodrigez Interpretating Date/Time 11/16/2017 19:02:36
[2017-11-16] MEDS: Methocarbamol 500 MG Tablet PO SCH (20:44)
[2017-11-16] MEDS: Enoxaparin Inj 40 MG/0.4 ML Syringe SQ SCH (22:10)
[2017-11-17] MEDS: Acetaminophen/Codeine 300/30 MG Tablet PO PRN ×2 (03:31→14:36)
--- NOTE | 2017-11-17 07:27 | P.PNNEU ---
Subjective Subjective Comments: confused overnoc after ativan Active Medications: Active Medications Acetaminophen (Tylenol) 650 mg PO Q4H PRN PRN Reason: TEMPERATURE > 101.5 F Acetaminophen/Codeine Phosphate (Tylenol W/Cod #3) 1 tab PO Q4H PRN PRN Reason: PAIN SCALE 1-10 Last Admin: 11/17/17 03:31 Dose: 1 tab Al Hydroxide/Mg Hydroxide (Milk Of Magnesia Liq) 30 ml PO Q12H PRN PRN Reason: Mild Constipation Bisacodyl (Dulcolax Supp) 10 mg RECTAL DAILY PRN PRN Reason: SEVERE CONSITIPATION Last Admin: 11/13/17 16:28 Dose: 10 mg Enoxaparin Sodium (Lovenox Inj) 40 mg SQ Q24H [facility] Last Admin: 11/16/17 22:10 Dose: 40 mg Fluticasone Propionate (Flonase Nasal [place]) 1 spray EACH NARE DAILY [facility] Last Admin: 11/16/17 09:29 Dose: Not Given Folic Acid (Folic Acid) 1 mg PO DAILY [facility] Last Admin: 11/16/17 09:27 Dose: 1 mg Furosemide (Lasix) 20 mg PO DAILY PRN PRN Reason: SEE LABEL COMMENTS Glipizide (Glucotrol) 5 mg PO BID [facility] Last Admin: 11/16/17 20:43 Dose: 5 mg Sodium Chloride (Ns Inj) 500 mls @ 30 mls/hr IV.SIG .Q10H [facility] Last Admin: 11/10/17 08:29 Dose: Not Given Lactulose (Lactulose Liq) 30 ml PO DAILY PRN PRN Reason: SEVERE CONSITIPATION Lorazepam (Ativan) 0.5 mg PO Q6H PRN PRN Reason: AGITATION Last Admin: 11/16/17 20:42 Dose: 0.5 mg Metformin HCl (Glucophage) 500 mg PO BID [facility] Last Admin: 11/16/17 20:43 Dose: 500 mg Methocarbamol (Robaxin) 750 mg PO HS [facility] Last Admin: 11/16/17 20:44 Dose: Not Given Methotrexate (Rheumatrex) 10 mg PO Q7D [facility] Metoprolol Tartrate (Lopressor) 12.5 mg PO BID [facility] Last Admin: 11/16/17 20:43 Dose: 12.5 mg Naloxone HCl (Narcan Inj) 0.4 mg IV.PUSH PRN PRN PRN Reason: SEE LABEL COMMENTS Ondansetron HCl (Zofran Inj) 4 mg IV.PUSH Q6H PRN PRN Reason: NAUSEA Pantoprazole Sodium (Protonix) 40 mg PO DAILY [facility] Last Admin: 11/16/17 09:27 Dose: 40 mg Potassium Chloride (K-Dur) 20 meq PO DAILY PRN PRN Reason: Electrolyte Replenishment Potassium Chloride (Kcl) 10 meq PO BID [facility] Last Admin: 11/16/17 20:43 Dose: 10 meq Senna/Docusate Sodium (Lizbeth-Colace) 1 tab PO BID [facility] Last Admin: 11/16/17 20:43 Dose: 1 tab Sennosides (Senokot) 17.2 mg PO Q12H PRN PRN Reason: Moderate Constipation Last Admin: 11/16/17 20:42 Dose: 17.2 mg Vitamin D (Vitamin D3) 5,000 unit PO DAILY [facility] Last Admin: 11/16/17 09:27 Dose: 5,000 unit Zolpidem Tartrate (Ambien) 10 mg PO HS [facility] Last Admin: 11/16/17 20:42 Dose: 10 mg Allergies/Adverse Reactions: Allergies Allergy/AdvReac Type Severity Reaction Status Date / Time penicillin G Allergy Severe Rash Verified 11/10/17 07:24 Physical Exam Vital signs: Vital Signs 11/16/17 08:00 11/16/17 12:00 11/16/17 16:00 Temperature 98.4 F 98.5 F 98.3 F Pulse Rate 92 H 88 93 H Respiratory Rate 18 18 18 Blood Pressure 133/77 132/75 135/77 Pulse Oximetry 99 99 96 11/16/17 20:00 11/16/17 20:17 11/17/17 00:02 Temperature 97.4 F L Pulse Rate 103 H 91 H 91 H Respiratory Rate 18 Blood Pressure 128/77 Pulse Oximetry 96 11/17/17 03:59 Temperature Pulse Rate 92 H Respiratory Rate Blood Pressure Pulse Oximetry Intake & Output 11/16/17 11/17/17 11/17/17 18:59 06:59 18:59 Intake Total 600 / 600 Output Total 1040 / 1040 3260 / 3260 Balance -440 / -440 -3260 / -3260 Intake: Oral 600 / 600 Output: Urine 1000 / 1000 3250 / 3250 Wound Drainage 40 / 40 10 / 10 # 1 Lower Medial Back 40 Other: Date of Last Bowel Movement 11/13/17 Narrative: awake alert ox3 now face sym speech clear - Urinary Catheter Management Indwelling Urethral Catheter Cath placed during this visit: yes Urethral indwelling: Yes Reason for continuing: Acute urinary retention Insertion date: 11/10/17 Insertion time: 09:00 Objective Laboratory Results - last 24 hr 11/16/17 11/16/17 11/16/17 08:34 10:01 12:23 PT 11.0 INR 1.1 POC Glucose 177 H 134 H 11/16/17 11/16/17 18:27 20:37 PT INR POC Glucose 129 H 136 H Review/Management - Review/Management Plan: imp mri and echo and us neg maybe to stop bleeding team could dc lovenox half dose he is on until bleeding stops then start back on when drain can come out? i dw son risk of cva off full anticoag afib tia no cva here
[2017-11-17] MEDS: Folic Acid 1 MG Tablet PO SCH (08:43)
[2017-11-17] MEDS: Senna/Docusate Sodium 8.6/50 MG Tablet PO SCH (08:44)
[2017-11-17] MEDS: Metoprolol Tartrate 25 MG Tablet PO SCH (08:44)
[2017-11-17] MEDS: glipiZIDE 5 MG Tablet PO SCH (08:44)
[2017-11-17] MEDS: Potassium Chloride 10 MEQ ER Capsule PO SCH (08:44)
--- NOTE | 2017-11-17 10:22 | P.DS ---
Date of admission: 11/10/17 06:42 Primary care physician: Pecry Antoine DO Brief History from admission: Elective surgery for done on 11/10/17 L3-L4, L4-5 laminectomy, interbody arthrodhesis using PEEK cage and autologous bone graft, L3-L4, L4-5 instrumental fixation using transpedicular screws and rods, L3-L4, L4-5 posterolateral fusion using autologous bone graft and rods. 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 Coumadin not restarted, rather Lovenox low dose. He has episode of speech difficulty and weakness on 11/16, Tia work up. Ct Negative, Mri negative,. Neurology consulted. Symptoms resolved. Family insistent on Coumadin being restarted to prevent CVA. Lovenox will continue, Coumadin to restart tomorrow. Case discussed between Dr Antoine and Dr Lowe. he is cleared to DC to [facility]. - Time Spent with Patient Total time spent providing and/or coordinating discharge services: 40 Greater than 30 minutes - Quality: Stroke Last date observed well: 11/15/17 Last time observed well: 20:30 - Quality: VTE Deep Vein Thrombosis/Pulmonary Embolism Present on Admission: No Exam Vital signs: Vital Signs 11/16/17 12:00 11/16/17 16:00 11/16/17 20:00 Temperature 98.5 F 98.3 F 97.4 F L Pulse Rate 88 93 H 103 H Respiratory Rate 18 18 18 Blood Pressure 132/75 135/77 128/77 Pulse Oximetry 99 96 96 11/16/17 20:17 11/17/17 00:02 11/17/17 03:59 Temperature Pulse Rate 91 H 91 H 92 H Respiratory Rate Blood Pressure Pulse Oximetry Intake & Output 11/16/17 11/17/17 11/17/17 18:59 06:59 18:59 Intake Total 600 / 600 Output Total 1040 / 1040 3330 / 3330 Balance -440 / -440 -3330 / -3330 Intake: Oral 600 / 600 Output: Urine 1000 / 1000 3250 / 3250 Wound Drainage 40 / 40 80 / 80 # 1 Lower Medial Back 40 / 40 80 / 80 Other: Date of Last Bowel Movement 11/13/17 - Constitutional no acute distress - Routine HEENT Exam Eye: Present: PERRL ENT: Present: mucous membranes moist - Routine Respiratory Exam Present: CTA bilaterally - Routine Cardiovascular Exam Present: S1, S2 - Routine Abdominal Exam Present: soft - Routine Skin Exam Present: dry, warm - Routine Neurological Exam Present: alert Results Procedures completed during hospitalization: 3-L4, L4-5 laminectomy, interbody arthrodhesis using PEEK cage and autologous bone graft, L3-L4, L4-5 instrumental fixation using transpedicular screws and rods, L3-L4, L4-5 posterolateral fusion using autologous bone graft and rods. 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 Head CT 11/15/17 21:01 CONCLUSION: No acute intracranial findings. Discussed with Dr. Wang at 1749 . Carotid Doppler Study 11/16/17 00:00 CONCLUSION: 1. Right Internal Carotid Artery: No hemodynamically significant stenosis. 2. Left Internal Carotid Artery: No hemodynamically significant stenosis. Head MRI 11/16/17 09:07 CONCLUSION: 1. No acute infarct, acute hemorrhage, midline shift or extra axial fluid collections. 2. Mild periventricular and subcortical white matter small vessel ischemic changes bilaterally. 3. Mild cerebral atrophy. Labs on day of discharge: Labs from last 24 hours 11/16/17 11/16/17 11/16/17 20:37 18:27 12:23 POC Glucose 136 H 129 H 134 H Laboratory Results - last 72 hr 11/14/17 11/14/1718 12:50 17:54 00:43 WBC RBC Hgb POC Hgb (Calc) Hct POC Hct MCV MCH MCHC RDW Plt Count MPV Neut % (Auto) Lymph % (Auto) Parke % (Auto) Eos % (Auto) Baso % (Auto) Neut # (Auto) Lymph # (Auto) Parke # (Auto) Eos # (Auto) Baso # (Auto) WBC Differential Differential Comment PT INR APTT Fibrinogen POC Sodium POC Potassium POC Chloride POC BUN POC Creatinine POC Glucose 105 141 H 92 Total Creatine Kinase Troponin I Blood Type Antibody Screen 11/15/17 11/15/17 11/15/17 04:07 06:25 11:37 WBC RBC Hgb POC Hgb (Calc) Hct POC Hct MCV MCH MCHC RDW Plt Count MPV Neut % (Auto) Lymph % (Auto) Parke % (Auto) Eos % (Auto) Baso % (Auto) Neut # (Auto) Lymph # (Auto) Parke # (Auto) Eos # (Auto) Baso # (Auto) WBC Differential Differential Comment PT 10.9 INR 1.1 APTT Fibrinogen POC Sodium POC Potassium POC Chloride POC BUN POC Creatinine POC Glucose 125 H 161 H Total Creatine Kinase Troponin I Blood Type Antibody Screen 11/15/17 11/15/17 11/15/17 18:19 20:52 21:05 WBC 7.6 RBC 3.72 L Hgb 11.4 L POC Hgb (Calc) Hct 34.5 L POC Hct MCV 92.8 MCH 30.7 MCHC 33.1 RDW 15.4 Plt Count 237 D MPV 8.6 Neut % (Auto) 58.4 Lymph % (Auto) 24.4 Parke % (Auto) 13.1 H Eos % (Auto) 3.6 Baso % (Auto) 0.5 Neut # (Auto) 4.5 Lymph # (Auto) 1.9 Parke # (Auto) 1.0 H Eos # (Auto) 0.3 Baso # (Auto) 0.0 WBC Differential . Differential Comment Auto diff final PT INR APTT Fibrinogen POC Sodium POC Potassium POC Chloride POC BUN POC Creatinine POC Glucose 112 H 206 H Total Creatine Kinase Troponin I Blood Type Antibody Screen 11/15/17 11/15/17 11/15/17 21:05 21:05 21:05 WBC RBC Hgb POC Hgb (Calc) Hct POC Hct MCV MCH MCHC RDW Plt Count MPV Neut % (Auto) Lymph % (Auto) Parke % (Auto) Eos % (Auto) Baso % (Auto) Neut # (Auto) Lymph # (Auto) Parke # (Auto) Eos # (Auto) Baso # (Auto) WBC Differential Differential Comment PT 10.7 INR 1.1 APTT 27.1 Fibrinogen 582 H POC Sodium POC Potassium POC Chloride POC BUN POC Creatinine POC Glucose Total Creatine Kinase 83 Troponin I Less than 0.02 L Blood Type A Positive Antibody Screen Negative 11/15/17 11/16/17 11/16/17 21:05 06:00 08:34 WBC RBC Hgb POC Hgb (Calc) 11.2 L Hct POC Hct 33.0 L MCV MCH MCHC RDW Plt Count MPV Neut % (Auto) Lymph % (Auto) Parke % (Auto) Eos % (Auto) Baso % (Auto) Neut # (Auto) Lymph # (Auto) Parke # (Auto) Eos # (Auto) Baso # (Auto) WBC Differential Differential Comment PT 11.0 INR 1.1 APTT Fibrinogen POC Sodium 138 POC Potassium 3.7 POC Chloride 101 L POC BUN 11 POC Creatinine 0.6 POC Glucose 182 H 121 H Total Creatine Kinase Troponin I Blood Type Antibody Screen 11/16/17 11/16/17 11/16/17 10:01 12:23 18:27 WBC RBC Hgb POC Hgb (Calc) Hct POC Hct MCV MCH MCHC RDW Plt Count MPV Neut % (Auto) Lymph % (Auto) Parke % (Auto) Eos % (Auto) Baso % (Auto) Neut # (Auto) Lymph # (Auto) Parke # (Auto) Eos # (Auto) Baso # (Auto) WBC Differential Differential Comment PT INR APTT Fibrinogen POC Sodium POC Potassium POC Chloride POC BUN POC Creatinine POC Glucose 177 H 134 H 129 H Total Creatine Kinase Troponin I Blood Type Antibody Screen 11/16/17 20:37 WBC RBC Hgb POC Hgb (Calc) Hct POC Hct MCV MCH MCHC RDW Plt Count MPV Neut % (Auto) Lymph % (Auto) Parke % (Auto) Eos % (Auto) Baso % (Auto) Neut # (Auto) Lymph # (Auto) Parke # (Auto) Eos # (Auto) Baso # (Auto) WBC Differential Differential Comment PT INR APTT Fibrinogen POC Sodium POC Potassium POC Chloride POC BUN POC Creatinine POC Glucose 136 H Total Creatine Kinase Troponin I Blood Type Antibody Screen - Impressions ITS Impressions Lumbar Spine X-Ray 11/10/17 00:00 CONCLUSION: Anatomic alignment. Head CT 11/15/17 21:01 CONCLUSION: No acute intracranial findings. Discussed with Dr. Wang at 1721 . Carotid Doppler Study 11/16/17 00:00 CONCLUSION: 1. Right Internal Carotid Artery: No hemodynamically significant stenosis. 2. Left Internal Carotid Artery: No hemodynamically significant stenosis. Head MRI 11/16/17 09:07 CONCLUSION: 1. No acute infarct, acute hemorrhage, midline shift or extra axial fluid collections. 2. Mild periventricular and subcortical white matter small vessel ischemic changes bilaterally. 3. Mild cerebral atrophy. Discharge Plan - Discharge Disposition Patient Disposition: 64 Re[facility] Inpatient - Discharge Condition Condition: Good - Discharge Order Discharge Orders: Discharge Order (Routine); Ordered 11/17/17 Ordered By: Criselda Mazariegos - Discharge Details Anticipated Discharge Date: 11/17/17 - Physicians Team Primary Care Provider: Percy Antoine Attending Provider: Alber Lowe Other Providers: Percy Antoine DO ; Albert Mendez MD - Rxs /Orders / Referrals /Forms Prescriptions: New glipizide [Glucotrol] 5 mg Tablet 5 mg PO BID RF: 0 hydrocodone-acetaminophen 2.5-325 mg Tablet 2 tab PO Q4-6H PRN (Reason: Acute Pain) 5 Days Qty: 20 RF: 0 naloxone 0.4 mg/mL Solution 0.4 mg IV.PUSH PRN PRN (Reason: See Label Comments) RF: 0 ondansetron HCl (PF) 4 mg/2 mL Solution 4 mg IV.PUSH Q6H PRN (Reason: Nausea) RF: 0 pantoprazole 40 mg Tablet,Delayed Release (Dr/Ec) 40 mg PO DAILY RF: 0 Continue acetaminophen [Acetaminophen Extra Strength] 500 mg Tablet 500 mg PO Q4H PRN (Reason: Pain) aspirin [Aspirin Low Dose] 81 mg Tablet,Delayed Release (Dr/Ec) 81 mg PO DAILY celecoxib [Celebrex] 200 mg Capsule 200 mg PO BID cholecalciferol (vitamin D3) [Vitamin D3] 5,000 unit Tablet 5,000 unit PO DAILY enoxaparin [Lovenox] 150 mg/mL Syringe 150 mg SUB-Q DAILY fluticasone [Flonase Allergy Relief] 50 mcg/actuation [place],Suspension 1 spray INTRANASAL DAILY folic acid 0.8 mg Capsule 0.8 mg PO DAILY furosemide 20 mg Tablet 20 mg PO DAILY PRN (Reason: Edema) magnesium hydroxide [Milk of Magnesia] 400 mg/5 mL Suspension 15 ml PO DAILY PRN (Reason: Constipation) metformin 500 mg Tablet 500 mg PO BID methocarbamol 750 mg Tablet 750 mg PO HS methotrexate sodium 10 mg Tablet 10 mg PO WEEKLY methotrexate sodium 5 mg Tablet 5 mg PO QWEEK metoprolol tartrate 25 mg Tablet 12.5 mg PO BID potassium chloride [Klor-Con M20] 20 mEq Tablet,Er Particles/Crystals 20 meq PO DAILY PRN (Reason: Electrolyte Replenishment) warfarin [Coumadin] 6 mg Tablet 6 mg PO DAILY zolpidem 10 mg Tablet 10 ophthalmic insert PO HS Discontinued acetaminophen-codeine 300-30 mg Tablet 1 tab PO Q6H PRN (Reason: Pain) glipizide 10 mg Tablet 10 mg PO BID Referrals: Percy Antoine DO [Primary Care Provider] - See Instructions - Discharge Instructions Patient Printed Instructions: Laminectomy (DC) Additional Instructions: Case discusses with Dr. Antoine and Dr. Lowe, Plan to cont Lovenox today, Ok to Restart Coumadin tomorrow per Dr Lowe. - Post Discharge Care Plan Care Plan Goals: Your Health Problems: Goals to Promote Your Health: * To prevent worsening of your condition * To maintain your health at the optimal level Directions to Meet Your Goals: * Take your medications as prescribed * Follow your dietary instruction * Follow activity as directed * Keep your appointments as scheduled * Take your immunizations and boosters as scheduled * If your symptoms worsen call your PCP * If no PCP go to Urgent Care or Emergency Room Smoking is dangerous to your health. Avoid second hand smoke. You may reach the 24-hour crisis hotline for domestic abuse at .
[2017-11-17 13:38] VITALS: BP 105/62; PULSE 108; TEMP 98.3
== END 2017-11-17 16:11 ==
LOC: HSDI 06:42 → N06 17:52
PROVIDERS: ADMIT Neurological Surgery; ATTEND Neurological Surgery
PROC: LAMPLIF (2017-11-10 08:33)